=== PATIENT | male | born 1965 | race Caucasian/White ===

== ENCOUNTER 2017-07-08 14:15 | Inpatient (IN) | payer BC ==
[~2017-07-08] VITALS: Ht 182.9 cm; Wt 95.5 kg
[~2017-07-08 14:15] MED LIST: ALL300 PO; AZIT250T PO
--- NOTE | 2017-07-08 14:42 | EMERGENCY ROOM VISIT NOTE ---
History Report prepared by Mervin: Kodi Moon Under the Supervision of: Dr. Barb Short M.D. First contact with patient: 14:35 Chief Complaint: SYNCOPE Stated Complaint: SYNCOPE Nursing Triage Summary: pt reports he has been feeling not well today was at work went to boss to tell him he was not feeling well and had syncopal episode . pt was incontinent of stool. pt smells of gi bleed. has hx of hemorrhoids have been increasingly worse since wednesday. today after syncopal episode pt pants have bright red blood on them. pt now reports feeling better. had flu shot a couple days ago. pt has abrasion at left eyebrow, has headache from fall History of Present Illness The patient is a 51 year old male who presents to the Emergency Room with complaints of a syncopal episode that occurred earlier today. The patient says that he felt a bit "off" this morning, but it was not bad enough to stay home, so he went to work. He states that he continued to feel "off", and then walked about 50 feet across the office at work, and suddenly felt a wave of nausea, and then he passed out and collapsed on the floor. The patient notes that he was out a short period, and he woke up on the floor. He says that he was incontinent of stool when he was out. He adds that earlier today, he felt a touch of diarrhea, but had not had a bowel movement today prior to the syncopal episode. The patient denies any chest pain or shortness of breath. He says that he has a past medical history of double hernias and hemorrhoids. He notes that he had a colonoscopy earlier this year which revealed some potential signs of diverticulosis. He says that he rarely uses Aspirin or Ibuprofen. The patient rarely drinks alcohol. He notes no history of hepatitis. Source of History: patient Onset: Earlier today Position: other (global - syncope) Timing: other (episode) Associated Symptoms: + LOC, + nausea, No chest pain, No SOB Note: Associated symptoms: Feeling off today. Incontinent of stool during episode. Ackerman a touch of diarrhea earlier today. Review of Systems See HPI for pertinent positives & negatives. A total of 10 systems reviewed and were otherwise negative. Past Medical & Surgical Medical Problems: (1) Diverticulosis (2) Gout (3) Inguinal hernia Family History No pertinent family history Social History Smoking Status: Never Smoker Marital Status: Housing Status: lives with family Occupation Status: employed Current/Historical Medications Scheduled Allopurinol (Zyloprim), 300 MG PO DAILY Ferrous Sulfate (Ferrous Sulfate), 325 MG PO DAILY Multiple Vitamins W/ Minerals (Mens 50+ Multi Vitamin &), 1 TAB PO DAILY Psyllium (Metamucil Fiber), 1 PKT PO DAILY Allergies Coded Allergies: No Known Allergies (Unverified , 08/06/08) Physical Exam Vital Signs Date Time Temp Pulse Resp B/P (MAP) Pulse Ox O2 Delivery O2 Flow Rate FiO2 07/08/17 16:57 80 15 113/80 99 Room Air 07/08/17 15:33 86 128/76 100 Room Air 98 109/88 104 97/69 07/08/17 14:47 87 18 121/84 100 Room Air 07/08/17 14:38 100 Room Air 07/08/17 14:36 83 07/08/17 14:24 36.8 75 18 122/83 100 Room Air Physical Exam Vital signs reviewed. Orthostatics noted to be positive. General: Well-appearing 51 year old male, in no significant distress. HEENT: Pale conjunctiva. No scleral icterus, PERRLA, neck supple. Atraumatic. Cardiovascular: Regular rate and rhythm, no extra sounds. Pulmonary: Clear to auscultation bilaterally, normal work of breathing. Abdomen: Soft, nontender, nondistended, positive bowel sounds. Rectal: Melanotic stool, dark red blood, no external hemorrhoid or trauma visualized. Musculoskeletal: Atraumatic, no peripheral edema. Neurologic: Patient awake alert and oriented x 3 Skin: Warm, dry, no rash Medical Decision & Procedures ER Provider Diagnostic Interpretation: CT results as stated below per my review and radiologist interpretation: CT OF THE HEAD WITHOUT CONTRAST CLINICAL HISTORY: Head injury. Syncope. COMPARISON STUDY: No previous studies for comparison. CT DOSE: 1156.35 mGy.cm TECHNIQUE: Helical axial images of the head were obtained without IV contrast. Automated exposure control was utilized for the study. A dose lowering technique was utilized adhering to the principles of ALARA. FINDINGS: No acute intracranial hemorrhage, midline shift or mass effect is present. Brain volume is normal. Ventricular system is normal. Basilar cisterns are patent. There are no extra-axial collections. [place]-white differentiation is preserved. There are no findings to suggest acute dural sinus thrombosis or acute territorial infarct. There is no calvarial fracture. Visualized portions of the sinuses and mastoid air cells are clear. IMPRESSION: 1. No acute intracranial findings. 2. No calvarial fracture. Electronically signed by: Kodi Bal M.D. 07/08/2017 4:44 PM Dictated Date/Time: 07/08/2017 4:40 PM Laboratory Results Test 07/08/17 14:15 Immature Granulocyte % (Auto) 0.2 % White Blood Count 12.08 K/uL (4.8-10.8) Red Blood Count 3.11 M/uL (4.7-6.1) Hemoglobin 9.9 g/dL (14.0-18.0) Hematocrit 29.0 % (42-52) Mean Corpuscular Volume 93.2 fL (80-100) Mean Corpuscular Hemoglobin 31.8 pg (25-34) Mean Corpuscular Hemoglobin Concent 34.1 g/dl (32-36) Platelet Count 292 K/uL (130-400) Mean Platelet Volume 9.2 fL (7.4-10.4) Neutrophils (%) (Auto) 66.0 % Lymphocytes (%) (Auto) 27.2 % Monocytes (%) (Auto) 6.0 % Eosinophils (%) (Auto) 0.4 % Basophils (%) (Auto) 0.2 % Neutrophils # (Auto) 7.99 K/uL (1.4-6.5) Lymphocytes # (Auto) 3.28 K/uL (1.2-3.4) Monocytes # (Auto) 0.72 K/uL (0.11-0.59) Eosinophils # (Auto) 0.05 K/uL (0-0.5) Basophils # (Auto) 0.02 K/uL (0-0.2) Immature Granulocyte # (Auto) 0.02 K/uL (0.00-0.02) Total Bilirubin 0.2 mg/dl (0.2-1) Aspartate Amino Transf (AST/SGOT) 17 U/L (15-37) Alanine Aminotransferase (ALT/SGPT) 22 U/L (12-78) Alkaline Phosphatase 57 U/L (45-117) Total Protein 6.4 gm/dl (6.4-8.2) Albumin 3.1 gm/dl (3.4-5.0) Globulin 3.3 gm/dl (2.5-4.0) Albumin/Globulin Ratio 0.9 (0.9-2) Laboratory results per my review. Medications Administered Medications (Trade) Dose Ordered Sig/Nolan Route Start Time Stop Time Status Last Admin Dose Admin Sodium Chloride 500 ml @ 999 mls/hr Q31M STAT IV 07/08/17 15:14 07/08/17 15:44 DC 07/08/17 15:43 999 MLS/HR Sodium Chloride 1,000 ml @ 150 mls/hr Q6H40M STAT IV 07/08/17 15:14 07/08/17 18:20 DC 07/08/17 15:43 150 MLS/HR Pantoprazole Sodium 80 mg/ Dextrose 120 ml @ 400 mls/hr NOW IV 07/08/17 15:45 07/08/17 18:21 DC 07/08/17 17:22 400 MLS/HR ECG Indication: syncope Rate (beats per minute): 80 Rhythm: normal sinus Findings: no acute ischemic change, no ectopy ED Course 1514: Ordered NSS 1000 ml @ 150 mls/hr IV, NSS 500 ml @ 999 mls/hr IV. 1525: Past medical records reviewed. The patient was evaluated in room A3. A complete history and physical examination was performed. 1545: Ordered Pantoprazole Sodium 80 mg/Dextrose 120 ml @ 400 mls/hr IV. 1550: I talked to Dr. Brooke about getting a blood transfusion consent, type& cross 2 units to hold. 1635: Upon reevaluation, the patient is resting comfortably. I discussed laboratory and radiographic results with him. He verbalized agreement of the treatment plan. The patient will be evaluated for further management and care. 1645: I discussed the patient with Evelyn De Leon - she will evaluate the patient for further treatment. Medical Decision Differential diagnosis: Etiologies such as diverticulosis, AVM, coagulopathy, colitis, inflammatory bowel disease, malignancy, Evelyn-De Santiago tear, esophagitis, peptic ulcer disease , variceal bleed, gastritis, epistaxis, fissure, hemorrhoids, as well as others were entertained. This patient was evaluated and appeared to be in no significant distress. IV access was obtained and laboratory work was drawn. The patient was placed on the hat finisher. Patient is noted to have positive orthostatics. IV hydration was initiated. He was incontinent of a guaiac positive melanotic stool. H&H is low at 9.9 and 29. Patient's type and cross retaining is to hold. IV Protonix was initiated. EKG reveals a sinus rhythm without ectopy or ischemia. Patient will be evaluated by the hospitalist service for admission and further management. Medication Reconcilliation Current Medication List: was personally reviewed by me Blood Pressure Screening Patient's blood pressure: Normal blood pressure Consults Time Called: 1640 Consulting Physician: Evelyn De Leon Returned Call: [phone] I discussed the patient with Evelyn De Leon - she will evaluate the patient for further treatment. Impression Primary Impression: GI bleed Additional Impression: Syncope Scribe Attestation The scribe's documentation has been prepared under my direction and personally reviewed by me in its entirety. I confirm that the note above accurately reflects all work, treatment, procedures, and medical decision making performed by me. Departure Information Dispostion Being Evaluated By Hospitalist Referrals Larry Cobian M.D. (PCP) Patient Instructions My [facility] Problem Qualifiers
[2017-07-08] MEDS ORDERED: MULT-599 PO (15:14)
[2017-07-08] MEDS ORDERED: FERR325T5 PO (15:14)
[2017-07-08] MEDS ORDERED: SODIUM CHLORIDE 0.9% 1000ML 1,000 ML IV STA (15:14)
[2017-07-08] MEDS ORDERED: PSYL58.636 PO (15:14)
[2017-07-08] MEDS ORDERED: SODIUM CHLORIDE 0.9% 500ML 500 ML IV STA (15:14)
[2017-07-08] MEDS ORDERED: ALLO300T2 PO (15:14)
[2017-07-08 15:29] LABS: BASO % 0.2 %; BASO ABS # 0.02 K/uL (0-0.2); COMPLETE YES; EOS % 0.4 %; IG% 0.2 %; LYMPH % 27.2 %; LYMPH ABS # 3.28 K/uL (1.2-3.4); MEAN CELL VOLUME 93.2 fL (80-100); MEAN CORPUSCULAR HEMOGLOBIN 31.8 pg (25-34); MEAN CORPUSCULAR HGB CONC 34.1 g/dl (32-36); MEAN PLATELET VOLUME 9.2 fL (7.4-10.4); PLATELET COUNT 292 K/uL (130-400); RED BLOOD COUNT 3.11 M/uL (4.7-6.1); WHITE BLOOD COUNT 12.08 K/uL (4.8-10.8)
[2017-07-08 15:38] LABS: ALT/SGPT 22 U/L (12-78); AST/SGOT 17 U/L (15-37); BLOOD UREA NITROGEN 17 mg/dl (7-18); BUN/CREATININE RATIO 15.4 (10-20); CALCIUM 7.9 mg/dl (8.5-10.1); CARBON DIOXIDE 26 mmol/L (21-32); CHLORIDE 105 mmol/L (98-107); CREATININE 1.08 mg/dl (0.60-1.40); GLUCOSE 121 mg/dl (70-99); POTASSIUM 3.5 mmol/L (3.5-5.1); SODIUM 138 mmol/L (136-145)
[2017-07-08 15:43] LABS: ALB/GLOB RATIO 0.9 (0.9-2); ALKALINE PHOSPHATASE 57 U/L (45-117)
[2017-07-08] MEDS ORDERED: PANTOprazole INJ 80 MG in DEXTROSE 5% 100ML 100 ML IV SCH (15:45)
--- NOTE | 2017-07-08 16:02 | EMERGENCY ROOM VISIT NOTE ---
History First contact with patient: 14:36 Chief Complaint: SYNCOPE Stated Complaint: SYNCOPE Nursing Triage Summary: pt reports he has been feeling not well today was at work went to boss to tell him he was not feeling well and had syncopal episode . pt was incontinent of stool. pt smells of gi bleed. has hx of hemorrhoids have been increasingly worse since wednesday. today after syncopal episode pt pants have bright red blood on them. pt now reports feeling better. had flu shot a couple days ago. pt has abrasion at left eyebrow, has headache from fall History of Present Illness The patient is a 51 year old male who presents to the Emergency Room with complaints of syncopal episode, GI bleeding -Pt says that today at work he suddenly became nauseous and had the urge to defecate. -Pt says that he went into his [employer] office to and immediately passed out and soiled himself. -Pt said that he hit his head on the desk when falling -Pt says that the bowel movement was mixed with blood. -Pt says that he has noticed lily blood in the toilet throughout the week and just thought that it was from his internal hemorrhoids -Pt has a PMH of hemmorrhoids, diverticulosis and bilateral inguinal hernias -Pt denies abdominal pain prior to the episode. Pt reports feeling a little fatigued in the days leading up to the syncopal episode. -Pt had a colonoscopy in January which found moderate diverticulosis -Pt is not on a blood thinner -Pt donates PLT q 2 weeks. Review of Systems see below Constitutional: No fever, No chills, No sweats Respiratory: No cough, No sputum, No wheezing Cardiovascular: No chest pain, No edema, No palpitations Abdomen: + nausea, + diarrhea, + GI bleeding, No pain, No vomiting Genitourinary - Male: No hematuria, No dysuria Past Medical/Surgical History Medical Problems: (1) Diverticulosis (2) Gout (3) Inguinal hernia Social History Smoking Status: Never Smoker Marital Status: Housing Status: lives with family Occupation Status: employed Current/Historical Medications Scheduled Allopurinol (Zyloprim), 300 MG PO DAILY Ferrous Sulfate (Ferrous Sulfate), 325 MG PO DAILY Multiple Vitamins W/ Minerals (Mens 50+ Multi Vitamin &), 1 TAB PO DAILY Psyllium (Metamucil Fiber), 1 PKT PO DAILY Physical Exam Vital Signs Date Time Temp Pulse Resp B/P (MAP) Pulse Ox O2 Delivery O2 Flow Rate FiO2 07/08/17 16:57 80 15 113/80 99 Room Air 07/08/17 15:33 86 128/76 100 Room Air 98 109/88 104 97/69 07/08/17 14:47 87 18 121/84 100 Room Air 07/08/17 14:38 100 Room Air 07/08/17 14:36 83 07/08/17 14:24 36.8 75 18 122/83 100 Room Air Physical Exam see below General Appearance: WD/WN, no apparent distress Head: normocephalic, + evidence of trama (small abrasion on left eyebrow) Eyes: normal inspection, PERRL, EOMI, sclerae normal, funduscopic exam normal Respiratory/Chest: chest non-tender, lungs clear, normal breath sounds, no respiratory distress, no accessory muscle use Cardiovascular: regular rate, rhythm, no edema, no gallop, no JVD, no murmur Abdomen / GI: normal bowel sounds, non tender, soft, no organomegaly, no pulsatile mass, + abnormal rectal exam (melanous blood seen with KYLE. ), + fecal occult blood Neurologic/Psych: no motor/sensory deficits, alert, normal mood/affect, oriented x 3 Medical Decision & Procedures ER Provider Diagnostic Interpretation: CT OF THE HEAD WITHOUT CONTRAST CLINICAL HISTORY: Head injury. Syncope. COMPARISON STUDY: No previous studies for comparison. CT DOSE: 1156.35 mGy.cm TECHNIQUE: Helical axial images of the head were obtained without IV contrast. Automated exposure control was utilized for the study. A dose lowering technique was utilized adhering to the principles of ALARA. FINDINGS: No acute intracranial hemorrhage, midline shift or mass effect is present. Brain volume is normal. Ventricular system is normal. Basilar cisterns are patent. There are no extra-axial collections. [place]-white differentiation is preserved. There are no findings to suggest acute dural sinus thrombosis or acute territorial infarct. There is no calvarial fracture. Visualized portions of the sinuses and mastoid air cells are clear. IMPRESSION: 1. No acute intracranial findings. 2. No calvarial fracture. Electronically signed by: oKdi Bal M.D. 07/08/2017 4:44 PM Dictated Date/Time: 07/08/2017 4:40 PM The status of this report is Signed. Draft = Not yet reviewed or approved by Radiologist. Signed = Reviewed and approved by Radiologist. <AttendingPhy></AttendingPhy> <FamilyPhy>Kevin Garg M.D.(DAYANNA)</ FamilyPhy> <PrimaryPhy>Kevin Garg M.D.(DAYANNA)</PrimaryPhy> <UnitNumber> [id number]</UnitNumber> <VisitNumber>[id number]</VisitNumber> <PatientName> JACLYN CONNELLY</PatientName> <DateOfBirth>1965</DateOfBirth> <Location> [facility]</Location> <ServiceDate>07/08/17</ServiceDate> <MNE>ESINDI</MNE> < OrderingPhy>Edmar Brooke M.D.</OrderingPhy> <OrderingPhyMNE>f rep ord dr quispe</OrderingPhyMNE> <DictatingPhyMNE>f rep dict dr quispe</DictatingPhyMNE> < CCListMNE>f rep ct mne</CCListMNE> <AdmittingPhyMNE>f pt admit dr quispe</ AdmittingPhyMNE> <AttendingPhyMNE>f pt attend dr quispe</AttendingPhyMNE> Laboratory Results 07/08/17 14:15 Red Blood Count 3.11, Mean Corpuscular Volume 93.2, Mean Corpuscular Hemoglobin 31.8, Mean Corpuscular Hemoglobin Concent 34.1, Mean Platelet Volume 9.2, Neutrophils (%) (Auto) 66.0, Lymphocytes (%) (Auto) 27.2, Monocytes (%) (Auto) 6.0, Eosinophils (%) (Auto) 0.4, Basophils (%) (Auto) 0.2, Neutrophils # (Auto) 7.99, Lymphocytes # (Auto) 3.28, Monocytes # (Auto) 0.72, Eosinophils # (Auto) 0.05, Basophils # (Auto) 0.02 07/08/17 14:15 Test 07/08/17 14:15 White Blood Count 12.08 K/uL (4.8-10.8) Red Blood Count 3.11 M/uL (4.7-6.1) Hemoglobin 9.9 g/dL (14.0-18.0) Hematocrit 29.0 % (42-52) Mean Corpuscular Volume 93.2 fL (80-100) Mean Corpuscular Hemoglobin 31.8 pg (25-34) Mean Corpuscular Hemoglobin Concent 34.1 g/dl (32-36) Platelet Count 292 K/uL (130-400) Mean Platelet Volume 9.2 fL (7.4-10.4) Neutrophils (%) (Auto) 66.0 % Lymphocytes (%) (Auto) 27.2 % Monocytes (%) (Auto) 6.0 % Eosinophils (%) (Auto) 0.4 % Basophils (%) (Auto) 0.2 % Neutrophils # (Auto) 7.99 K/uL (1.4-6.5) Lymphocytes # (Auto) 3.28 K/uL (1.2-3.4) Monocytes # (Auto) 0.72 K/uL (0.11-0.59) Eosinophils # (Auto) 0.05 K/uL (0-0.5) Basophils # (Auto) 0.02 K/uL (0-0.2) RDW Standard Deviation 46.7 fL (36.4-46.3) RDW Coefficient of Variation 13.7 % (11.5-14.5) Immature Granulocyte % (Auto) 0.2 % Immature Granulocyte # (Auto) 0.02 K/uL (0.00-0.02) Anion Gap 7.0 mmol/L (3-11) Est Creatinine Clear Calc Drug Dose 100.0 ml/min Estimated GFR () 91.6 Estimated GFR (Non- 79.0 BUN/Creatinine Ratio 15.4 (10-20) Calcium Level 7.9 mg/dl (8.5-10.1) Total Bilirubin 0.2 mg/dl (0.2-1) Aspartate Amino Transf (AST/SGOT) 17 U/L (15-37) Alanine Aminotransferase (ALT/SGPT) 22 U/L (12-78) Alkaline Phosphatase 57 U/L (45-117) Total Protein 6.4 gm/dl (6.4-8.2) Albumin 3.1 gm/dl (3.4-5.0) Globulin 3.3 gm/dl (2.5-4.0) Albumin/Globulin Ratio 0.9 (0.9-2) Medications Administered Medications (Trade) Dose Ordered Sig/Nolan Route Start Time Stop Time Status Last Admin Dose Admin Sodium Chloride 500 ml @ 999 mls/hr Q31M STAT IV 07/08/17 15:14 07/08/17 15:44 DC 07/08/17 15:43 999 MLS/HR Sodium Chloride 1,000 ml @ 150 mls/hr Q6H40M STAT IV 07/08/17 15:14 07/08/17 18:20 DC 07/08/17 15:43 150 MLS/HR Pantoprazole Sodium 80 mg/ Dextrose 120 ml @ 400 mls/hr NOW IV 07/08/17 15:45 07/08/17 18:21 DC 07/08/17 17:22 400 MLS/HR ED Course 1500 History and Physical 1515 Order the following labs and test: EKG, troponin, orthostatic BP, CBC, CMP , CT of the head w/o contrast, Protonix, fluids, type and cross 2 units, IVF 1530 Reaccessed the patient 1545 Reviewed EKG, labs 1600 ordered IVF, type and cross, protonix 1615 patient consented to possible blood transfusion 1630 reaccessed patient, communicated need to admit. Discussed admission with hospitalist 1645 Pt taken to radiology for Head Ct 1700 Pt seen by hospitalist Medical Decision 51 yo male comes into the ED following syncopal episode and melena Pt had a significant rectal bleed when coming into the ED. The blood appears maroon in color. Pt is being evaluated for upper GI bleed. Considering the following differential: perforated ulcer, bleeding diverticulosis, bleeding internal hemorrhoids, IBD, colorectal cancer EKG normal sinus rhythm. Pt had a Hgb 9.9, HCT of 29. Pt had orthostatic hypotension. Pt was given 500 ml bolus of fluids and 1 L of IVF. Patient was also given protonix. Pt was type and crossed, with 2 units on hold. Pt signed blood transfusion consent. Other than orthostasis, pt was seen to have stable vitals throughout ED course. Head CT did not show intracranial findings or skull fracture. Consulted with the [facility] Hospitalist group regarding admission. Pt needs evaluation for upper GI bleed. Pt needs serial H/H and vitals. Impression Primary Impression: GI bleed Departure Information Referrals Larry Cobian M.D. (PCP) Patient Instructions My [facility]
--- NOTE | 2017-07-08 16:45 | DIAGNOSTIC IMAGING REPORT ---
CT OF THE HEAD WITHOUT CONTRAST CLINICAL HISTORY: Head injury. Syncope. COMPARISON STUDY: No previous studies for comparison. CT DOSE: 1156.35 mGy.cm TECHNIQUE: Helical axial images of the head were obtained without IV contrast. Automated exposure control was utilized for the study. A dose lowering technique was utilized adhering to the principles of ALARA. FINDINGS: No acute intracranial hemorrhage, midline shift or mass effect is present. Brain volume is normal. Ventricular system is normal. Basilar cisterns are patent. There are no extra-axial collections. [place]-white differentiation is preserved. There are no findings to suggest acute dural sinus thrombosis or acute territorial infarct. There is no calvarial fracture. Visualized portions of the sinuses and mastoid air cells are clear. IMPRESSION: 1. No acute intracranial findings. 2. No calvarial fracture. Electronically signed by: Kodi Bal M.D. 07/08/2017 4:44 PM Dictated Date/Time: 07/08/2017 4:40 PM
[2017-07-08] MEDS ORDERED: ACETAMINOPHEN 325 MG TAB PO PRN (17:15)
[2017-07-08] MEDS ORDERED: ONDANSETRON INJ 2 MG/ML 2 ML VIAL IV PRN (17:15)
[2017-07-08 17:30] VITALS: O2SAT 99; Ht 182.9 cm; Wt 95.5 kg
[2017-07-08 17:37] LABS: HEMATOCRIT 26.3 % (42-52)
--- NOTE | 2017-07-08 18:00 | History and Physical ---
History & Physical Date & Time of Service: Jul 08, 2017 ~ 16:30 Chief Complaint: Syncope Primary Care Physician: Kevin Garg M.D.(DAYANNA) History of Present Illness 51 year old male who presents to the ED after a syncopal event. Patient reports that when he woke up this morning he reports he felt "off and not himself." While at work, he reports he was walking down the [address] and suddenly felt lightheaded, dizzy, and nauseous. He walked into his boss's office and the next thing he new he was on the floor. He did hit his head on the desk on the way down. There was no reported seizure like symptoms or postictal state noted. No loss of bowel or bladder function. Patient denies any preceding chest pain or shortness of breath. He reports that since Wednesday he has had bloody diarrhea 1- 2 times a day. He reports that he thought it was hemorrhoids bleeding. He describes the blood as bright red. Last episode was this morning. He denies any dark tarry stools. He has had no abdominal pain. He denies any vomiting. No fevers or chills. He denies any urinary symptoms. In the ED, patient was found to have positive orthostatic BPs. Hgb is 9.9 (last hgb was 14.3 in 2007). He was given IVF and IV Protonix. Past Medical/Surgical History Medical Problems: (1) Diverticulosis Status: Chronic (2) Gout Status: Chronic (3) Inguinal hernia Status: Chronic Family History Diabetes mellitus FATHER FH: heart disease FATHER Social History Smoking Status: Never Smoker Alcohol Use: occasionally Marital Status: Occupational Status: employed Immunizations History of Influenza Vaccine: Yes Influenza Vaccine Date: Jul 03, 2017 History of Tetanus Vaccine?: Yes Tetanus Immunization Date: May 23, 2009 Multi-Drug Resistant Organisms History of MDRO: No Allergies Coded Allergies: No Known Allergies (Unverified , 08/06/08) Home Medications Scheduled Allopurinol (Zyloprim), 300 MG PO DAILY Ferrous Sulfate (Ferrous Sulfate), 325 MG PO DAILY Multiple Vitamins W/ Minerals (Mens 50+ Multi Vitamin &), 1 TAB PO DAILY Psyllium (Metamucil Fiber), 1 PKT PO DAILY Review of Systems ROS per HPI, all other systems reviewed and negative Physical Exam Vital Signs Date Time Temp Pulse Resp B/P (MAP) Pulse Ox O2 Delivery O2 Flow Rate FiO2 07/08/17 16:57 80 15 113/80 99 Room Air 07/08/17 15:33 86 128/76 100 Room Air 98 109/88 104 97/69 07/08/17 14:47 87 18 121/84 100 Room Air 07/08/17 14:38 100 Room Air 07/08/17 14:36 83 07/08/17 14:24 36.8 75 18 122/83 100 Room Air General Appearance: WD/WN, no apparent distress Head: normocephalic, + pertinent finding (small abrasion noted over left eyebrow with a small amount of edema) Eyes: normal inspection, EOMI, sclerae normal ENT: hearing grossly normal, + pertinent finding (mucous membranes moist) Neck: supple, no JVD, trachea midline Respiratory/Chest: lungs clear, normal breath sounds, no respiratory distress Cardiovascular: regular rate, rhythm, no edema, normal peripheral pulses Abdomen/GI: normal bowel sounds, non tender, soft, no organomegaly Extremities/Musculoskelatal: normal inspection, no calf tenderness, normal capillary refill Neurologic/Psych: no motor/sensory deficits, alert, oriented x 3 Skin: normal color, warm/dry Diagnostics Laboratory Results Results Past 24 Hours Test 07/08/17 14:15 Range/Units White Blood Count 12.08 4.8-10.8 K/uL Red Blood Count 3.11 4.7-6.1 M/uL Hemoglobin 9.9 14.0-18.0 g/dL Hematocrit 29.0 42-52 % Mean Corpuscular Volume 93.2 80-100 fL Mean Corpuscular Hemoglobin 31.8 25-34 pg Mean Corpuscular Hemoglobin Concent 34.1 32-36 g/dl Platelet Count 292 130-400 K/uL Mean Platelet Volume 9.2 7.4-10.4 fL Neutrophils (%) (Auto) 66.0 % Lymphocytes (%) (Auto) 27.2 % Monocytes (%) (Auto) 6.0 % Eosinophils (%) (Auto) 0.4 % Basophils (%) (Auto) 0.2 % Neutrophils # (Auto) 7.99 1.4-6.5 K/uL Lymphocytes # (Auto) 3.28 1.2-3.4 K/uL Monocytes # (Auto) 0.72 0.11-0.59 K/uL Eosinophils # (Auto) 0.05 0-0.5 K/uL Basophils # (Auto) 0.02 0-0.2 K/uL RDW Standard Deviation 46.7 36.4-46.3 fL RDW Coefficient of Variation 13.7 11.5-14.5 % Immature Granulocyte % (Auto) 0.2 % Immature Granulocyte # (Auto) 0.02 0.00-0.02 K/uL Sodium Level 138 136-145 mmol/L Potassium Level 3.5 3.5-5.1 mmol/L Chloride Level 105 98-107 mmol/L Carbon Dioxide Level 26 21-32 mmol/L Anion Gap 7.0 3-11 mmol/L Blood Urea Nitrogen 17 7-18 mg/dl Creatinine 1.08 0.60-1.40 mg/dl Est Creatinine Clear Calc Drug Dose 100.0 ml/min Estimated GFR () 91.6 Estimated GFR (Non- 79.0 BUN/Creatinine Ratio 15.4 10-20 Random Glucose 121 70-99 mg/dl Calcium Level 7.9 8.5-10.1 mg/dl Total Bilirubin 0.2 0.2-1 mg/dl Aspartate Amino Transf (AST/SGOT) 17 15-37 U/L Alanine Aminotransferase (ALT/SGPT) 22 12-78 U/L Alkaline Phosphatase 57 45-117 U/L Troponin I < 0.015 0-0.045 ng/ml Total Protein 6.4 6.4-8.2 gm/dl Albumin 3.1 3.4-5.0 gm/dl Globulin 3.3 2.5-4.0 gm/dl Albumin/Globulin Ratio 0.9 0.9-[address] IMPRESSION: 1. No acute intracranial findings. 2. No calvarial fracture. Impression Assessment and Plan LOWER GI BLEED - admit to tele - patient presenting with syncopal event and also with bloody diarrhea x 4 days ; in the ED, orthostatic BPs are positive and hgb found to be 9.9 - colonoscopy 01/2017 - diverticulosis sigmoid colon; polyp removed from transverse colon (negative path) - suspect likely diverticular bleed; noted no abdominal pain - will continue to check serial H/Hs, transfuse PRN - clear liquids, NPO after midnight - will check stool studies - case discussed with Dr. Jones SYNCOPE - likely due to orthostasis due to hypovolemia from blood loss from GI bleed - IVF, continue to monitor orthostatic BPs - initial troponin negative, will continue to cycle for completeness - noted head CT negative GOUT - continue allopurinol DVT PROPHYLAXIS - SCDs due to GI bleed DISPO - In my clinical judgment this beneficiary meets acute admission criteria, established by [facility], that includes being hospitalized through two midnights. Attending Physician Dr. Crystal Addendum: I have seen and examined the patient with MARITIME OFFICER Love and agree with the above assessment and plan. Patient without cardiac or respiratory health history with syncopal episode in context of several days of blood per rectum and found to be anemic. Patient denies chest pain or shortness of breath with normal EKG and normal CT head scan. Will continue to monitor CBC and provide supportive therapy, patient consented for blood transfusion if needed. Awaiting GI service for colonoscopy for GI bleed. Level of Care Telemetry Resuscitation Status FULL RESUSCITATION VTE Prophylaxis VTE Risk Assessment Done? Y/N: Yes Risk Level: Moderate Given or contraindicated: SCD's
[2017-07-08 18:12] VITALS: BP 119/83; PULSE 81; TEMP 36.7; O2SAT 98
[2017-07-08] MEDS: SODIUM CHLORIDE 0.9% 1000ML 1,000 ML IV SCH (18:24)
[2017-07-08 21:02] LABS: HEMATOCRIT 27.6 % (42-52)
[2017-07-08 21:52] VITALS: BP_SYST 111; BP_SYST 124; BP_SYST 132; BP_DIAS 77; BP_DIAS 79; BP_DIAS 84; PULSE 109; PULSE 89; PULSE 97; O2SAT 99
[2017-07-08 23:56] VITALS: BP_SYST 108; BP_SYST 124; BP_SYST 127; BP_DIAS 76; BP_DIAS 78; BP_DIAS 83; PULSE 102; PULSE 115; PULSE 79; TEMP 36.5; O2SAT 97
[2017-07-09] VITALS (9 sets, daily range): BP systolic 102–134; BP diastolic 68–81; PULSE 16–100; TEMP 36.3–37; O2SAT 97–100
[2017-07-09] MEDS: SODIUM CHLORIDE 0.9% 1000ML 1,000 ML IV SCH (03:01)
[2017-07-09 05:42] LABS: HEMATOCRIT 25.1 % (42-52); MEAN CORPUSCULAR HEMOGLOBIN 31.1 pg (25-34); MEAN CORPUSCULAR HGB CONC 33.5 g/dl (32-36); MEAN PLATELET VOLUME 8.8 fL (7.4-10.4); PLATELET COUNT 238 K/uL (130-400); WHITE BLOOD COUNT 10.34 K/uL (4.8-10.8)
[2017-07-09 06:13] LABS: BLOOD UREA NITROGEN 15 mg/dl (7-18); BUN/CREATININE RATIO 16.5 (10-20); CALCIUM 8.1 mg/dl (8.5-10.1); CARBON DIOXIDE 27 mmol/L (21-32); CHLORIDE 110 mmol/L (98-107); CREATININE 0.93 mg/dl (0.60-1.40); GLUCOSE 93 mg/dl (70-99); POTASSIUM 3.8 mmol/L (3.5-5.1); SODIUM 142 mmol/L (136-145)
--- NOTE | 2017-07-09 08:27 | Gastrointestinal Consultation ---
Gastrointestinal Consultation Date of Consultation: Jul 09, 2017 Attending Physician: Bonilla Consulting Physician: Robert Reason for Consultation: GIB History of Present Illness Patient is a 51 year old male with history of Gout, diverticulosis and hemorrhoids who presented to the ED following a syncopal episode at work. Pt was seen and evaluated, chart reviewed. Pt notes that he was in his typical state of health up until Wednesday. He notes that he normally moves his bowels once daily, formed stools, without rectal pain or rectal bleeding. Developed painless rectal bleeding on Wednesday. 1-2 episodes of dark red stools. no clots. he became symptomatic with light headness, dizziness and syncopal episode yesterday. H&H 8.4/. VSS. BUN CERTIFIED WELLNESS PROGRAM COORDINATOR ok Past Medical/Surgical History Medical Problems: (1) GI bleed Status: Acute Past Medical History: gout, diverticulosis Past Surgical History: colonoscopy Family History Diabetes mellitus FATHER FH: heart disease FATHER Social History Smoking Status: Never Smoker Marital Status: Housing Status: lives with family Occupation Status: employed Allergies Coded Allergies: No Known Allergies (Unverified , 08/06/08) Current Medications Home Meds and Scripts Medications Dose Route/Sig Max Daily Dose Days Date Category Metamucil Fiber (Psyllium) 51.7 % [place] 1 Pkt PO DAILY 07/08/17 Reported Ferrous Sulfate 325 Mg Tab 325 Mg PO DAILY 07/08/17 Reported Mens 50+ Multi Vitamin & (Multiple Vitamins W/ Minerals) 1 Tab Tab 1 Tab PO DAILY 07/08/17 Reported Zyloprim (Allopurinol) 300 Mg Tab 300 Mg PO DAILY 07/08/17 Reported Review of Systems Constitutional: No fever, No chills Respiratory: No cough Cardiac: No chest pain Abdomen: + diarrhea, + GI bleeding, No pain, No nausea, No vomiting Physical Exam Date Time Temp Pulse Resp B/P (MAP) Pulse Ox O2 Delivery O2 Flow Rate FiO2 07/09/17 08:02 36.9 84 19 114/76 (89) 98 Nasal Cannula 82 110/76 (87) 16 117/81 (93) 07/09/17 04:00 Room Air 07/09/17 03:50 36.3 86 18 102/69 (80) 98 Room Air 07/08/17 23:59 Room Air 07/08/17 23:56 36.5 79 18 127/83 (98) 97 Room Air 102 124/78 (93) 115 108/76 (87) 07/08/17 21:52 89 20 124/84 (97) 99 Room Air 97 132/77 (95) 109 111/79 (90) 07/08/17 20:00 Room Air 07/08/17 18:12 36.7 81 20 119/83 (95) 98 Room Air 07/08/17 17:40 90 10 114/77 97 07/08/17 17:30 99 Room Air 07/08/17 17:21 88 07/08/17 16:57 80 15 113/80 99 Room Air 07/08/17 15:33 86 128/76 100 Room Air 98 109/88 104 97/69 07/08/17 14:47 87 18 121/84 100 Room Air 07/08/17 14:38 100 Room Air 07/08/17 14:36 83 07/08/17 14:24 36.8 75 18 122/83 100 Room Air General Appearance: no apparent distress Eyes: PERRL ENT: hearing grossly normal Neck: supple Respiratory/Chest: lungs clear Cardiovascular: regular rate, rhythm Abdomen: non tender, soft, no organomegaly, no pulsatile mass Neurologic/Psych: alert, normal mood/affect, oriented x 3 Skin: normal color Laboratory Results Last 24 Hours Test 07/08/17 14:15 07/08/17 17:16 07/08/17 20:50 07/09/17 05:14 White Blood Count 12.08 K/uL 10.34 K/uL Red Blood Count 3.11 M/uL 2.70 M/uL Hemoglobin 9.9 g/dL 8.9 g/dL 8.9 g/dL 8.4 g/dL Hematocrit 29.0 % 26.3 % 27.6 % 25.1 % Mean Corpuscular Volume 93.2 fL 93.0 fL Mean Corpuscular Hemoglobin 31.8 pg 31.1 pg Mean Corpuscular Hemoglobin Concent 34.1 g/dl 33.5 g/dl Platelet Count 292 K/uL 238 K/uL Mean Platelet Volume 9.2 fL 8.8 fL Neutrophils (%) (Auto) 66.0 % Lymphocytes (%) (Auto) 27.2 % Monocytes (%) (Auto) 6.0 % Eosinophils (%) (Auto) 0.4 % Basophils (%) (Auto) 0.2 % Neutrophils # (Auto) 7.99 K/uL Lymphocytes # (Auto) 3.28 K/uL Monocytes # (Auto) 0.72 K/uL Eosinophils # (Auto) 0.05 K/uL Basophils # (Auto) 0.02 K/uL RDW Standard Deviation 46.7 fL 46.7 fL RDW Coefficient of Variation 13.7 % 13.8 % Immature Granulocyte % (Auto) 0.2 % Immature Granulocyte # (Auto) 0.02 K/uL Sodium Level 138 mmol/L 142 mmol/L Potassium Level 3.5 mmol/L 3.8 mmol/L Chloride Level 105 mmol/L 110 mmol/L Carbon Dioxide Level 26 mmol/L 27 mmol/L Anion Gap 7.0 mmol/L 5.0 mmol/L Blood Urea Nitrogen 17 mg/dl 15 mg/dl Creatinine 1.08 mg/dl 0.93 mg/dl Est Creatinine Clear Calc Drug Dose 100.0 ml/min 113.9 ml/min Estimated GFR () 91.6 109.8 Estimated GFR (Non- 79.0 94.7 BUN/Creatinine Ratio 15.4 16.5 Random Glucose 121 mg/dl 93 mg/dl Calcium Level 7.9 mg/dl 8.1 mg/dl Total Bilirubin 0.2 mg/dl Aspartate Amino Transf (AST/SGOT) 17 U/L Alanine Aminotransferase (ALT/SGPT) 22 U/L Alkaline Phosphatase 57 U/L Troponin I < 0.015 ng/ml < 0.015 ng/ml < 0.015 ng/ml Total Protein 6.4 gm/dl Albumin 3.1 gm/dl Globulin 3.3 gm/dl Albumin/Globulin Ratio 0.9 Impression Patient is a 51 year old male with 4 days of painless rectal bleeding resulting in a syncopal episode yesterday - he has been having 1-2 bloody BMs since Wednesday , colonoscopy in January with diverticulosis and one benign polyp. He is not having any abdominal pain. no NSAIDs. no anticoagulation. No UGI symptoms. UGIB vs LGIB , will proceed with EGD for evaluation to rule out UGI source. Likely diverticular bleed, painless bleeding Plan NPO EGD stool culture stool cdiff trend H&H monitor stools transfuse as needed I have seen , examined and agree with the plan as outlined by MARCK BarkerNP as above. -exam reveals soft abd -No bleeding since 1300 yesterday -Will do EGD today to r/u upper GI pathology -Further recs to follow Davis Jones M.D.
[2017-07-09] MEDS: ALLOPURINOL 300 MG TAB PO SCH (08:48)
[2017-07-09] MEDS: CEROVITE ADV FORMULA TAB PO SCH (08:48)
[2017-07-09] MEDS: FERROUS SULFATE 325 MG TAB PO SCH (08:48)
[2017-07-09] MEDS ORDERED: MIDAZOLAM HCL 1 MG/ML 2ML VIAL ONE (09:15)
--- NOTE | 2017-07-09 10:02 | Progress Note ---
Medicine Progress Note Date & Time of Visit: Jul 09, 2017 at 09:58. (Nanci Gee, P.A.-C.) Subjective Patient seen and examined. Resting comfortably and feeling much better. Denies any lightheadedness, dizziness, weakness or syncopal events overnight. Was able to ambulate to and from restroom without pre-syncopal symptoms. No bowel movement since admission, no BRBPR. Denies visual changes, headache, palpitations, SOB, abd pain, n/v, melena, hematochezia. (Nanci Gee, P.A.-C.) Objective Last 8 Hrs Date Time Temp Pulse Resp B/P (MAP) Pulse Ox O2 Delivery O2 Flow Rate FiO2 07/09/17 09:41 36.7 90 18 103/79 (87) 99 Room Air 07/09/17 09:03 36.9 84 19 117/81 98 Nasal Cannula 82 16 07/09/17 08:02 36.9 84 19 114/76 (89) 98 Nasal Cannula 82 110/76 (87) 16 117/81 (93) 07/09/17 08:00 Room Air 07/09/17 04:00 Room Air 07/09/17 03:50 36.3 86 18 102/69 (80) 98 Room Air Physical Exam: General Appearance: WD/WN, no apparent distress Head: normocephalic, atraumatic Eyes: normal inspection of sclera and conjunctiva, PERRL, EOMI ENT: hearing grossly normal, pharynx normal, dry mucous membranes Neck: supple, no JVD, no adenopathy Respiratory/Chest: lungs clear to auscultation. No wheezes, rales or rhonci. No respiratory distress or accessory muscle use Cardiovascular: regular rate, rhythm, no murmur, normal peripheral pulses Abdomen/GI: normal bowel sounds, soft, non-tender to palpation Extremities/Musculoskelatal: normal inspection, no calf tenderness, normal capillary refill, no pedal edema Neurologic/Psych: alert, normal mood/affect, oriented x 3 Skin: normal color, warm/dry Laboratory Results: Last 24 Hours Test 07/08/17 14:15 07/08/17 17:16 07/08/17 20:50 07/09/17 05:14 White Blood Count 12.08 K/uL 10.34 K/uL Red Blood Count 3.11 M/uL 2.70 M/uL Hemoglobin 9.9 g/dL 8.9 g/dL 8.9 g/dL 8.4 g/dL Hematocrit 29.0 % 26.3 % 27.6 % 25.1 % Mean Corpuscular Volume 93.2 fL 93.0 fL Mean Corpuscular Hemoglobin 31.8 pg 31.1 pg Mean Corpuscular Hemoglobin Concent 34.1 g/dl 33.5 g/dl Platelet Count 292 K/uL 238 K/uL Mean Platelet Volume 9.2 fL 8.8 fL Neutrophils (%) (Auto) 66.0 % Lymphocytes (%) (Auto) 27.2 % Monocytes (%) (Auto) 6.0 % Eosinophils (%) (Auto) 0.4 % Basophils (%) (Auto) 0.2 % Neutrophils # (Auto) 7.99 K/uL Lymphocytes # (Auto) 3.28 K/uL Monocytes # (Auto) 0.72 K/uL Eosinophils # (Auto) 0.05 K/uL Basophils # (Auto) 0.02 K/uL RDW Standard Deviation 46.7 fL 46.7 fL RDW Coefficient of Variation 13.7 % 13.8 % Immature Granulocyte % (Auto) 0.2 % Immature Granulocyte # (Auto) 0.02 K/uL Sodium Level 138 mmol/L 142 mmol/L Potassium Level 3.5 mmol/L 3.8 mmol/L Chloride Level 105 mmol/L 110 mmol/L Carbon Dioxide Level 26 mmol/L 27 mmol/L Anion Gap 7.0 mmol/L 5.0 mmol/L Blood Urea Nitrogen 17 mg/dl 15 mg/dl Creatinine 1.08 mg/dl 0.93 mg/dl Est Creatinine Clear Calc Drug Dose 100.0 ml/min 113.9 ml/min Estimated GFR () 91.6 109.8 Estimated GFR (Non- 79.0 94.7 BUN/Creatinine Ratio 15.4 16.5 Random Glucose 121 mg/dl 93 mg/dl Calcium Level 7.9 mg/dl 8.1 mg/dl Total Bilirubin 0.2 mg/dl Aspartate Amino Transf (AST/SGOT) 17 U/L Alanine Aminotransferase (ALT/SGPT) 22 U/L Alkaline Phosphatase 57 U/L Troponin I < 0.015 ng/ml < 0.015 ng/ml < 0.015 ng/ml Total Protein 6.4 gm/dl Albumin 3.1 gm/dl Globulin 3.3 gm/dl Albumin/Globulin Ratio 0.9 (Nanci Gee, P.A.-C.) Assessment & Plan This is a 51yo M with PMH of diverticulosis, gout who presents after a syncopal event yesterday and 4 days of painless rectal bleeding. Lower GI bleed: -Presenting with syncopal event and also with bloody diarrhea x 4 days -In the ED, orthostatic BPs are positive and hgb found to be 9.9 -Colonoscopy 01/2017 - diverticulosis sigmoid colon; polyp removed from transverse colon (negative path) -Serial H&H show downtrend from 9.9 --> 8.4 but VS stable, asymptomatic -NPO, EGD to rule out an upper bleed but most likely diverticular -No bowel movements during admission -Follow-up OP for colonoscopy -Stool studies pending -GI following Syncope: - Likely due to orthostasis due to hypovolemia from blood loss 2/2 GI bleed - IVF, continue to monitor orthostatic BPs -Orthostatics negative this AM - Troponin negative x 3 - noted head CT negative Gout: - Continue allopurinol DVT ppx: - SCDs due to GI bleed DISPO - If continues to feel well and hgb remains stable, patient may be ready for discharge later today vs. observe until tomorrow Discharge planning: home Current Inpatient Medications: Current Inpatient Medications Medications (Trade) Dose Ordered Sig/Nolan Route Start Time Stop Time Status Last Admin Dose Admin Sodium Chloride 1,000 ml @ 125 mls/hr Q8H IV 07/08/17 18:30 08/07/17 18:29 07/09/17 03:01 125 MLS/HR Acetaminophen (Tylenol Tab) 650 mg Q4H PRN PO 07/08/17 17:15 08/07/17 17:14 Ondansetron HCl (Zofran Inj) 4 mg Q6H PRN IV 07/08/17 17:15 08/07/17 17:14 Allopurinol (Zyloprim Tab) 300 mg DAILY PO 07/09/17 09:00 08/08/17 08:59 07/09/17 08:48 300 MG Ferrous Sulfate (Feosol Tab) 325 mg DAILY PO 07/09/17 09:00 08/08/17 08:59 07/09/17 08:48 325 MG Multivitamins/ Minerals (Multivitamin W/ Minerals Tab) 1 tab DAILY PO 07/09/17 09:00 08/08/17 08:59 07/09/17 08:48 1 TAB (Nanci Gee, P.AIgnacio-Carolynn) Addendum Attending Physician Dr. Crystal: I have seen and examined the patient with CAROLINA Gee. I would like to add to the assessment and plan by commenting that patient s/p EGD without obvious signs of source of bleeding. Evidence of hernia. Evidence of jaimie. Patient now on fluconazole for jaimie esophagitis however patient without pain on swallowing. As per GI evaluation, GI service believes source of bleeding is diverticular. Patient has not had bowel movement as of yet by 6 PM on 07/09/17. Will continue to monitor patient if further rectal bleed and trend CBC. ([place] Crystal M.D.)
[2017-07-09] MEDS ORDERED: LIDOCAINE HCL 2% 2 ML VIAL (20MG/ML) ONE (10:10)
[2017-07-09] MEDS ORDERED: PROPOFOL IV EMULSION 10 MG/ML 20 ML VIAL IV ONE (10:10)
[2017-07-09] MEDS ORDERED: PHENYLEPHRINE 100MCG/ML 5ML SYR ONE (10:23)
--- NOTE | 2017-07-09 10:41 | GI REPORT ---
Procedure Date: 07/09/2017 10:07 AM Procedure: Upper GI endoscopy Indications: Hematochezia Medicines: General Anesthesia Complications: No immediate complications. Estimated blood loss: None. Estimated Blood Loss: Estimated blood loss: none. Procedure: Pre-Anesthesia Assessment: - Pre-Anesthesia Assessment: - Prior to the procedure, a History and Physical was performed, and patient medications, allergies and sensitivities were reviewed. The patient's tolerance of previous anesthesia was reviewed. Please see Rock Content for complete details. - The risks and benefits of the procedure and the sedation options and risks were discussed with the patient. All questions were answered and informed consent was obtained. - Patient identification and proposed procedure were verified prior to the procedure by the physician and the nurse. The procedure was verified in the pre-procedure area in the procedure room. After obtaining informed consent, the endoscope was passed carefully and meticuously under direct vision and only advanced when the lumen was clearly identified, C02 insuflation was utilized throughout the entirity of the procedure. Throughout the procedure, the patient's blood pressure, pulse, and oxygen saturations were monitored continuously. After obtaining informed consent, the endoscope was passed under direct vision. Throughout the procedure, the patient's blood pressure, pulse, and oxygen saturations were monitored continuously. The Scope was introduced through the mouth, and advanced to the second part of duodenum. The upper GI endoscopy was accomplished without difficulty. The patient tolerated the procedure well. Findings: A large hiatus hernia was present. Patchy candidiasis was found in the upper third of the esophagus. Cells for cytology were obtained by brushing. The entire examined stomach was normal. The duodenal bulb, 2nd part of the duodenum, 3rd part of the duodenum and 4th part of the duodenum were normal. Impression: - Large hiatus hernia. - Monilial esophagitis. Cells for cytology obtained. - Normal stomach. - Normal duodenal bulb, 2nd part of the duodenum, 3rd part of the duodenum and 4th part of the duodenum. Recommendation: - Discharge patient to home (with escort). - Return patient to [facility] for [facility]. - Likely Diveticular bleed given presentation and recent colonsocopy in January 2017 with sigmoid diverticuli - Ok for liquids today, can advance if no bleeding by dinner. Supporitve care - Diflucan for jaimie - If has bleeding consider inpatient colonoscopy Davis Jones MD 07/09/2017 10:40:19 AM This report has been signed electronically. Note Initiated On: 07/09/2017 10:07 AM I attest to the content of the Intraoperative Record and orders documented therein, exceptions below
--- NOTE | 2017-07-09 10:56 | Anesthesiology Progress Note ---
Anesthesia Post Op Note Date & Time Jul 09, 2017 at 10:56 Vital Signs Pain Intensity: 0.0 Vital Signs Past 12 Hours Date Time Temp Pulse Resp B/P (MAP) Pulse Ox O2 Delivery O2 Flow Rate FiO2 07/09/17 10:46 74 16 111/75 (87) 96 Room Air 07/09/17 10:36 74 16 108/79 (89) 96 Room Air 07/09/17 10:27 74 16 92/58 (69) 95 Room Air 07/09/17 09:41 36.7 90 18 103/79 (87) 99 Room Air 07/09/17 09:03 36.9 84 19 117/81 98 Nasal Cannula 82 16 07/09/17 08:02 36.9 84 19 114/76 (89) 98 Nasal Cannula 82 110/76 (87) 16 117/81 (93) 07/09/17 08:00 Room Air 07/09/17 04:00 Room Air 07/09/17 03:50 36.3 86 18 102/69 (80) 98 Room Air 07/08/17 23:59 Room Air 07/08/17 23:56 36.5 79 18 127/83 (98) 97 Room Air 102 124/78 (93) 115 108/76 (87) Notes Mental Status: alert / awake / arousable, participated in evaluation Pt Amnestic to Procedure: Yes Nausea / Vomiting: adequately controlled Pain: adequately controlled Airway Patency, RR, SpO2: stable & adequate BP & HR: stable & adequate Hydration State: stable & adequate Anesthetic Complications: no major complications apparent
--- NOTE | 2017-07-09 12:45 | Clinical Documentation Query ---
QUERY 1 OF [address] CHANEY, In your clinical opinion is this patient being managed for: (x) Candidal esophagitis ( ) Not Agree ( ) Other explanation of clinical findings (Please Explain) ( ) Unable to determine (Please Define) ( ) Need to Discuss The medical record reflects the following clinical findings, treatment, and risk factors. Clinical Indicators:51 yo male presenting after a syncopal episode with recent onset of bloody stools. EGD showed monilial esophagitis. Treatment: po diflucan Risk Factors:hiatal hernia QUERY 2 OF 2 In your clinical opinion is this patient being managed for: ( x ) Acute blood loss anemia due to suspected diverticular bleed ( ) Not Agree ( ) Other explanation of clinical findings (Please Explain) ( ) Unable to determine (Please Define) ( ) Need to Discuss The medical record reflects the following clinical findings, treatment, and risk factors. Clinical Indicators: 51 yo male presenting with several days of bloody diarrhea. Hgb 9.9, Hct 29. Treatment: GI consult, EGD, IV fluids, serial H/H's, IV protonix Risk Factors: bloody diarrhea Please clarify and document your clinical opinion in the progress notes and discharge summary. Terms such as "probable", "suspected", "likely", "questionable", "possible", or "still to be ruled out" are acceptable. IF IN AGREEMENT, YOU MUST DOCUMENT ABOVE DIAGNOSTIC STATEMENT IN DAILY PROGRESS NOTES AND DISCHARGE SUMMARY. This document is not part of the patient's record. Thank You, Viridiana Batres, RN [phone]
[2017-07-09] MEDS: FLUCONAZOLE 100 MG TAB PO SCH (13:15)
[2017-07-09] MEDS ORDERED: NURSING VERBAL MED ORDER ONE (16:00)
[2017-07-10] VITALS (7 sets, daily range): BP systolic 100–119; BP diastolic 67–83; PULSE 62–98; TEMP 36.6–36.8; O2SAT 98–100
[2017-07-10 06:28] LABS: BASO % 0.2 %; BASO ABS # 0.01 K/uL (0-0.2); EOS % 1.2 %; HEMATOCRIT 24.7 % (42-52); IG% 0.2 %; LYMPH ABS # 2.09 K/uL (1.2-3.4); MEAN CELL VOLUME 93.6 fL (80-100); MEAN CORPUSCULAR HEMOGLOBIN 31.1 pg (25-34); MEAN CORPUSCULAR HGB CONC 33.2 g/dl (32-36); MEAN PLATELET VOLUME 8.8 fL (7.4-10.4); MONO % 8.9 %; NEUT % 57.5 %; PLATELET COUNT 256 K/uL (130-400); RED BLOOD COUNT 2.64 M/uL (4.7-6.1); WHITE BLOOD COUNT 6.53 K/uL (4.8-10.8)
[2017-07-10 07:06] LABS: BUN/CREATININE RATIO 9.6 (10-20); CALCIUM 8.3 mg/dl (8.5-10.1); CREATININE 0.98 mg/dl (0.60-1.40); POTASSIUM 3.8 mmol/L (3.5-5.1)
[2017-07-10 07:10] LABS: COMPLETE YES; HYPERSEGMENTED POLYS 1+
[2017-07-10] MEDS: FLUCONAZOLE 100 MG TAB PO SCH (08:01)
[2017-07-10] MEDS: ALLOPURINOL 300 MG TAB PO SCH (08:01)
[2017-07-10] MEDS: CEROVITE ADV FORMULA TAB PO SCH (08:02)
[2017-07-10] MEDS: FERROUS SULFATE 325 MG TAB PO SCH (08:02)
[2017-07-10 12:17] LABS: HEMATOCRIT 27.3 % (42-52); MEAN CELL VOLUME 93.2 fL (80-100); MEAN CORPUSCULAR HEMOGLOBIN 30.7 pg (25-34); MEAN PLATELET VOLUME 8.8 fL (7.4-10.4); PLATELET COUNT 309 K/uL (130-400); RED BLOOD COUNT 2.93 M/uL (4.7-6.1); WHITE BLOOD COUNT 8.26 K/uL (4.8-10.8)
--- NOTE | 2017-07-10 13:32 | Progress Note ---
Internal Med Progress Note Date of Service: Jul 10, 2017. Provider Documentation: SUBJECTIVE: Overnight patient has blood in stool x 2 episodes. Patient denies abdominal pain or lightheadedness or chest pain of shortness of breath. OBJECTIVE: General Appearance: WD/WN, no apparent distress Head: normocephalic, atraumatic Eyes: normal inspection of sclera and conjunctiva, EOMI ENT: hearing grossly normal, dry mucous membranes Neck: supple, no JVD, no adenopathy Respiratory/Chest: lungs clear to auscultation. No wheezes, rales or rhonchi. No respiratory distress or accessory muscle use Cardiovascular: regular rate, rhythm, no murmur, normal peripheral pulses Abdomen/GI: normal bowel sounds, soft, non-tender to palpation Extremities/Musculoskelatal: normal inspection, no calf tenderness, normal capillary refill, no pedal edema Neurologic/Psych: alert, normal mood/affect, oriented x 3 Skin: normal color, warm/dry ASSESSMENT & PLAN: This is a 51yo M with PMH of diverticulosis, gout who is admitted after syncopal episode at work in the context of painless GI bleed per rectum -Patient s/p EGD on 07/09/17 without evidence of ulcers -as per GI note on 07/09/17, suspect diverticular bleed -Hgb downtrending since admission: 9.9 (on admission) to 8.9 to 8.4 to 8.2 (on 07/10/17 AM lab) with repeat lab Hgb 9 around the noon time on 07/10/17. -I suspect that the Hgb around the noon time 07/10/17 is hemoconcentration as patient had 2 episodes of blood in stool between 07/09/17 to 07/10/17 -awaiting GI recommendations on timing of colonoscopy as patient continues to have blood in stool Syncope: - Likely due to orthostasis due to hypovolemia or anemia form blood loss secondary to GI bleed -CT head on admission negative -troponins negative x 3 -no arrhythmia seen on telemetry Gout: - Continue allopurinol DVT ppx: SCDs due to GI bleed Vital Signs: Date Time Temp Pulse Resp B/P (MAP) Pulse Ox O2 Delivery O2 Flow Rate FiO2 07/10/17 12:00 Room Air 07/10/17 11:31 36.8 79 18 100/67 (78) 99 Room Air 07/10/17 08:00 Room Air 07/10/17 07:48 36.7 77 18 119/73 (88) 100 Room Air 73 117/83 (94) 98 116/83 (94) 07/10/17 04:12 36.8 62 17 113/72 (86) 98 Room Air 07/10/17 04:00 98 Room Air 07/10/17 00:00 Room Air 07/09/17 23:33 100 106/71 (83) 07/09/17 23:30 86 112/79 (90) 07/09/17 23:28 36.8 81 15 118/68 (85) 97 Room Air 07/09/17 20:00 Room Air 07/09/17 19:30 37.0 80 22 114/75 (88) 100 Room Air 07/09/17 16:00 Room Air 07/09/17 15:37 36.6 89 22 116/73 (87) 100 Room Air 92 134/78 (96) 92 103/73 (83) Lab Results: Results Past 24 Hours Test 07/09/17 20:30 07/10/17 05:35 07/10/17 11:46 Range/Units Stool Occult Blood POSITIVE NEGATIVE White Blood Count 6.53 8.26 4.8-10.8 K/uL Red Blood Count 2.64 2.93 4.7-6.1 M/uL Hemoglobin 8.2 9.0 14.0-18.0 g/dL Hematocrit 24.7 27.3 42-52 % Mean Corpuscular Volume 93.6 93.2 80-100 fL Mean Corpuscular Hemoglobin 31.1 30.7 25-34 pg Mean Corpuscular Hemoglobin Concent 33.2 33.0 32-36 g/dl Platelet Count 256 309 130-400 K/uL Mean Platelet Volume 8.8 8.8 7.4-10.4 fL Neutrophils (%) (Auto) 57.5 % Lymphocytes (%) (Auto) 32.0 % Monocytes (%) (Auto) 8.9 % Eosinophils (%) (Auto) 1.2 % Basophils (%) (Auto) 0.2 % Neutrophils # (Auto) 3.76 1.4-6.5 K/uL Lymphocytes # (Auto) 2.09 1.2-3.4 K/uL Monocytes # (Auto) 0.58 0.11-0.59 K/uL Eosinophils # (Auto) 0.08 0-0.5 K/uL Basophils # (Auto) 0.01 0-0.2 K/uL RDW Standard Deviation 47.7 47.4 36.4-46.3 fL RDW Coefficient of Variation 13.9 13.8 11.5-14.5 % Immature Granulocyte % (Auto) 0.2 % Immature Granulocyte # (Auto) 0.01 0.00-0.02 K/uL Hypersegmented Polys 1+ Sodium Level 142 136-145 mmol/L Potassium Level 3.8 3.5-5.1 mmol/L Chloride Level 109 98-107 mmol/L Carbon Dioxide Level 28 21-32 mmol/L Anion Gap 5.0 3-11 mmol/L Blood Urea Nitrogen 9 7-18 mg/dl Creatinine 0.98 0.60-1.40 mg/dl Est Creatinine Clear Calc Drug Dose 107.3 ml/min Estimated GFR () 103.0 Estimated GFR (Non- 88.9 BUN/Creatinine Ratio 9.6 07-09 Random Glucose 87 70-99 mg/dl Calcium Level 8.3 8.5-10.1 mg/dl Magnesium Level 2.0 1.8-2.4 mg/dl Total Bilirubin 0.3 0.2-1 mg/dl Aspartate Amino Transf (AST/SGOT) 17 15-37 U/L Alanine Aminotransferase (ALT/SGPT) 15 12-78 U/L Alkaline Phosphatase 50 45-117 U/L Total Protein 5.7 6.4-8.2 gm/dl Albumin 2.9 3.4-5.0 gm/dl Globulin 2.8 2.5-4.0 gm/dl Albumin/Globulin Ratio 1.0 0.9-2 Microbiology Results 07/09/17 C.difficile Toxin B Gene (PCR) - Final, Complete No C. difficile toxin B gene detected 07/09/17 Shiga Toxin Test, Received Pending 07/09/17 Stool Culture, Received Pending
[2017-07-10] MEDS ORDERED: LAVAGE SOLUTION 4000ML PO SCH (18:00)
[2017-07-11] VITALS (17 sets, daily range): BP systolic 96–120; BP diastolic 56–80; PULSE 58–99; TEMP 36.2–37.4; O2SAT 96–100
[2017-07-11 06:14] LABS: BASO % 0.1 %; BASO ABS # 0.01 K/uL (0-0.2); EOS % 0.5 %; IG% 0.1 %; LYMPH % 30.6 %; LYMPH ABS # 2.31 K/uL (1.2-3.4); MEAN CELL VOLUME 92.7 fL (80-100); MEAN CORPUSCULAR HEMOGLOBIN 30.5 pg (25-34); MEAN CORPUSCULAR HGB CONC 32.9 g/dl (32-36); MEAN PLATELET VOLUME 8.7 fL (7.4-10.4); MONO % 7.7 %; PLATELET COUNT 289 K/uL (130-400); RED BLOOD COUNT 2.59 M/uL (4.7-6.1); WHITE BLOOD COUNT 7.54 K/uL (4.8-10.8)
[2017-07-11 06:49] LABS: COMPLETE YES; MICROCYTOSIS PRESENT
[2017-07-11 06:53] LABS: BUN/CREATININE RATIO 8.9 (10-20); CALCIUM 7.8 mg/dl (8.5-10.1); CREATININE 1.03 mg/dl (0.60-1.40); MAGNESIUM 2.1 mg/dl (1.8-2.4); POTASSIUM 3.6 mmol/L (3.5-5.1)
[2017-07-11] MEDS ORDERED: POTASSIUM CHLORIDE 20 MEQ TABCR PO STA (07:46)
[2017-07-11] MEDS: ALLOPURINOL 300 MG TAB PO SCH (08:26)
[2017-07-11] MEDS: CEROVITE ADV FORMULA TAB PO SCH (08:26)
[2017-07-11] MEDS: FERROUS SULFATE 325 MG TAB PO SCH (08:26)
[2017-07-11] MEDS: FLUCONAZOLE 100 MG TAB PO SCH (08:26)
[2017-07-11] MEDS ORDERED: FENTANYL CITRATE INJ 50 MCG/1 ML 2 ML VIAL IV STA (10:28)
--- NOTE | 2017-07-11 10:39 | GASTROENTEROLOGY PROGRESS NOTE ---
DATE: 07/11/2017 AGE: 51. SEX: Male. RACE: . 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 I had a pleasure of seeing Duarte Zimmerman today at his bedside. I was contacted by his primary care doctor yesterday, who stated that he was having recurrent lower gastrointestinal bleeding with bright red blood per rectum. The patient confirmed this and subsequently the decision was made to perform a colonoscopy today. He was given a bowel prep last night, which he tolerated. He states that he had multiple bowel movements, all with bright red blood. He does not feel lightheaded or dizzy, though his H&H decreased from yesterday's level of 9.0 and 27.3 to today's level of 7.9 and 24.0. His BUN and creatinine are within normal limits. He denies any abdominal pain, fevers, chills, nausea, vomiting, hematemesis or melena, though does admit to bright red blood per rectum. He has no further complaints. He has been n.p.o. since midnight. The patient did undergo an upper endoscopy by Dr. Jones on July 09 and he was noted to have a large hiatal hernia and questionable Sharri esophagitis, though his stomach and small bowel were normal. REVIEW OF SYSTEMS: Negative [id number] review other than pertinent positives listed in the HPI. PHYSICAL EXAMINATION: VITAL SIGNS: Include a temp of 37.2, pulse 89, respirations 18, blood pressure 120/80, and pulse ox 98% on room air. GENERAL: He is awake, cooperative, in no acute distress. HEAD: Normocephalic and atraumatic. EYES: Pupils equally round. Extraocular muscles are intact. ENT: External evaluation of ears and nose are normal. Oropharynx is clear. NECK: Soft and supple. There is no JVD or lymphadenopathy. CHEST: Clear to auscultation bilaterally. CARDIOVASCULAR SYSTEM: Regular rate and rhythm. ABDOMEN: Soft, nontender, and nondistended. Positive bowel sounds. There is no hepatosplenomegaly or stigmata of chronic liver disease. EXTREMITIES: No clubbing, cyanosis, or edema. IMPRESSION: This is a 51-year-old male with continued bright red blood per rectum of unknown etiology. PLAN: The patient underwent a colonoscopy and was found to have hematin in both the colon and ileum. No active bleeding source was identified. I discussed the case with Dr. Bull of Radiology and ordered a CT Angiogram of the Abd/ pelvis. If small bowel source of bleeding identified, he will need transfer to a center with IR capabilities. If upper or lower GI source found, he will need repeat EGD or Colonoscopy. Discussed the case with Dr. Crystal from the hospitalist team as well. Recommended transfusion to maintain H/H around 8/24 Continue supportive care Once again, thanks for allowing me to participate in the care of this patient. If you have any further questions, please do not hesitate in contacting me. JUNED
[2017-07-11] MEDS: MIDAZOLAM HCL 5 MG/ML 1 ML VIAL IV PRN ×5 (10:57→11:12)
--- NOTE | 2017-07-11 11:42 | GI REPORT ---
Procedure Date: 07/11/2017 10:40 AM Procedure: Colonoscopy Indications: Hematochezia Medicines: Fentanyl 150 micrograms IV, Midazolam 8 mg IV Complications: No immediate complications. Estimated Blood Loss: Estimated blood loss: none. Procedure: Pre-Anesthesia Assessment: - Prior to the procedure, a History and Physical was performed, and patient medications and allergies were reviewed. The patient's tolerance of previous anesthesia was also reviewed. The risks and benefits of the procedure and the sedation options and risks were discussed with the patient. All questions were answered, and informed consent was obtained. Prior Anticoagulants: The patient has taken no previous anticoagulant or antiplatelet agents. ASA Grade Assessment: II - A patient with mild systemic disease. After reviewing the risks and benefits, the patient was deemed in satisfactory condition to undergo the procedure. After I obtained informed consent, the scope was passed under direct vision. Throughout the procedure, the patient's blood pressure, pulse, and oxygen saturations were monitored continuously. The On-site loaner was introduced through the anus and advanced to 15 cm into the ileum. The colonoscopy was performed without difficulty. The patient tolerated the procedure well. The quality of the bowel preparation was fair. The terminal ileum, the appendiceal orifice and the rectum were photographed. Findings: A scattered area of mucosa in the entire examined ileum was mildly friable with contact bleeding. This was biopsied with a cold forceps for histology. The distal ileum contained hematin (altered blood/sukirm-xvekjy-pwbx material). Hematin (altered blood/wkphha-zkzvap-lrli material) was found in the entire colon. A few small-mouthed diverticula were found in the sigmoid colon. Non-bleeding internal hemorrhoids were found during retroflexion. The hemorrhoids were medium-sized. Impression: - Friability with contact bleeding in the entire examined ileum. Biopsied. - Blood in the distal ileum. - Blood in the entire examined colon. - Diverticulosis in the sigmoid colon. - Non-bleeding internal hemorrhoids. Recommendation: - [facility]. - NPO. - Do a CT angiogram today, after discussion with Radiology. - Refer to a surgeon today. Cecilio Carpenter DO 07/11/2017 11:41:22 AM This report has been signed electronically. Note Initiated On: 07/11/2017 10:40 AM I attest to the content of the Intraoperative Record and orders documented therein, exceptions below
[2017-07-11] MEDS ORDERED: OPTIRAY 320 IV PRN (12:45)
--- NOTE | 2017-07-11 12:51 | DIAGNOSTIC IMAGING REPORT ---
CT ANGIO ABD/PELVIS COMBO CT DOSE: 2695.80 mGy.cm CLINICAL HISTORY: Gastrointestinal hemorrhage TECHNIQUE: Unenhanced images were obtained through the abdomen and pelvis. The patient was scanned in a dynamic helical fashion during intravenous administration of 120 cc of Optiray 320. Arterial phase and portal phase imaging was performed. Imaging was performed. A dose lowering technique was utilized adhering to the principles of ALARA. COMPARISON STUDY: None. FINDINGS: There are by basilar atelectatic changes present. No hepatic masses are visualized. There is a calcified gallstone. No splenic masses are visualized. No pancreatic masses are visualized. No adrenal masses are visualized. There is a punctate nonobstructing left renal calculus. No solid renal masses are visualized. There is no hydronephrosis. There is no evidence of abdominal aortic dilatation. There is no ascites. There is no free air. There is no evidence of pathologic adenopathy. There is no evidence of abdominal aortic aneurysm. The inferior mesenteric artery is patent. There is no renal artery stenosis. There is no superior mesenteric artery stenosis. There is no celiac artery stenosis. There are no transition zones indicate bowel obstruction. There is a small amount of opaque material within the bowel, likely secondary to ingested pill fragments. There is no acute diverticulitis. The appendix appears normal. There are no areas of contrast extravasation. Prostate is enlarged. No destructive skeletal lesions are visualized. IMPRESSION: 1. Punctate nonobstructing left renal calculus 2. Cholelithiasis 3. No acute inflammatory changes. No evidence of bowel obstruction. No evidence of free air 4. No evidence of arterial stenosis 5. The site of GI bleeding was not identified on this examination Electronically signed by: Checo Bull M.D. 07/11/2017 12:49 PM Dictated Date/Time: 07/11/2017 12:41 PM
--- NOTE | 2017-07-11 15:24 | Surgery Consultation ---
Consultation Date of Consultation: Jul 11, 2017. Attending Physician: [place] Crystal M.D. History of Present Illness 51 y/o otherwise healthy male passed out at work. he had been having some significant rectal bleeding the day before. no prior history of the same. w/u so far has failed to show the etiology. colonoscopy today found blood throughout colon and ct angiogram was neg for source. pt without pain or other symptoms. Past Medical/Surgical History Medical Problems: (1) GI bleed Status: Acute (2) Syncope Status: Acute Family History Diabetes mellitus FATHER FH: heart disease FATHER Social History Smoking Status: Never Smoker Alcohol Use: occasionally Marital Status: Housing Status: lives with family Occupation Status: employed Allergies Coded Allergies: No Known Allergies (Unverified , 08/06/08) Home Medications Scheduled Allopurinol (Zyloprim), 300 MG PO DAILY Ferrous Sulfate (Ferrous Sulfate), 325 MG PO DAILY Multiple Vitamins W/ Minerals (Mens 50+ Multi Vitamin &), 1 TAB PO DAILY Psyllium (Metamucil Fiber), 1 PKT PO DAILY Current Inpatient Medications Current Inpatient Medications Medications (Trade) Dose Ordered Sig/Nolan Route Start Time Stop Time Status Last Admin Dose Admin Sodium Chloride 1,000 ml @ 125 mls/hr Q8H IV 07/08/17 18:30 08/07/17 18:29 Future Hold 07/09/17 03:01 125 MLS/HR Acetaminophen (Tylenol Tab) 650 mg Q4H PRN PO 07/08/17 17:15 08/07/17 17:14 Ondansetron HCl (Zofran Inj) 4 mg Q6H PRN IV 07/08/17 17:15 08/07/17 17:14 07/10/17 23:37 4 MG Allopurinol (Zyloprim Tab) 300 mg DAILY PO 07/09/17 09:00 08/08/17 08:59 07/11/17 08:26 300 MG Ferrous Sulfate (Feosol Tab) 325 mg DAILY PO 07/09/17 09:00 08/08/17 08:59 07/11/17 08:26 325 MG Multivitamins/ Minerals (Multivitamin W/ Minerals Tab) 1 tab DAILY PO 07/09/17 09:00 08/08/17 08:59 07/11/17 08:26 1 TAB Fluconazole (Diflucan Tab) 200 mg QAM PO 07/09/17 14:00 07/22/17 09:01 07/11/17 08:26 200 MG Ioversol (Optiray 320) 100 ml UD PRN IV 07/11/17 12:45 07/15/17 12:44 Review of Systems Constitutional: + weakness, + problem reported (syncope) Abdomen: + GI bleeding Physical Exam Date Time Temp Pulse Resp B/P (MAP) Pulse Ox O2 Delivery O2 Flow Rate FiO2 07/11/17 15:03 36.7 77 16 115/76 99 07/11/17 14:30 37.0 72 18 114/73 100 07/11/17 14:00 68 18 111/73 96 07/11/17 13:48 37.0 73 18 108/71 97 07/11/17 13:30 37.1 73 74 117/75 99 07/11/17 13:15 36.4 75 16 113/75 97 07/11/17 13:04 37.2 78 18 110/71 98 07/11/17 12:00 Room Air 07/11/17 12:00 36.2 72 18 111/75 (87) 97 Room Air 07/11/17 11:54 79 18 125/89 (101) 97 Nasal Cannula 07/11/17 11:39 81 18 150/91 (110) 98 Nasal Cannula 07/11/17 11:24 84 18 139/95 (110) 98 Nasal Cannula 07/11/17 11:22 70 16 131/102 98 Room Air 07/11/17 11:20 71 16 138/102 98 Nasal Cannula 3 07/11/17 11:15 78 16 150/95 98 Nasal Cannula 3 07/11/17 11:10 72 16 145/100 98 Nasal Cannula 3 07/11/17 11:05 76 16 147/101 98 Nasal Cannula 3 07/11/17 11:00 65 16 159/96 96 Nasal Cannula 3 07/11/17 10:57 72 16 132/98 07/11/17 10:46 36.8 75 18 125/75 (92) 97 Room Air 07/11/17 09:42 37.2 89 18 120/80 98 Room Air 75 07/11/17 08:00 Room Air 07/11/17 07:55 37.2 75 18 105/66 (79) 98 Room Air 89 118/78 (91) 88 120/80 (93) 07/11/17 04:00 36.8 75 110/60 (77) 100 Room Air 81 115/73 (87) 99 109/64 (79) 07/11/17 04:00 100 Room Air 07/11/17 00:00 98 119/72 (88) 98 Room Air 07/11/17 00:00 98 Room Air 07/10/17 20:00 99 Room Air 07/10/17 18:55 36.6 77 18 107/71 (83) 99 Room Air 07/10/17 16:29 36.8 78 18 100/68 (79) 100 Room Air 07/10/17 16:00 Room Air General Appearance: no apparent distress Head: normocephalic, atraumatic Eyes: EOMI, sclerae normal ENT: hearing grossly normal Neck: supple, no JVD Respiratory/Chest: no respiratory distress, no accessory muscle use Abdomen/GI: non tender, soft Extremities/Musculoskelatal: no pedal edema, non-tender Neurologic/Psych: alert, oriented x 3 Skin: normal color, warm/dry Laboratory Results Last 24 Hours Test 07/10/17 16:30 07/10/17 20:11 07/10/17 23:44 07/11/17 05:27 Bedside Glucose 84 mg/dl 89 mg/dl 102 mg/dl White Blood Count 7.54 K/uL Red Blood Count 2.59 M/uL Hemoglobin 7.9 g/dL Hematocrit 24.0 % Mean Corpuscular Volume 92.7 fL Mean Corpuscular Hemoglobin 30.5 pg Mean Corpuscular Hemoglobin Concent 32.9 g/dl Platelet Count 289 K/uL Mean Platelet Volume 8.7 fL Neutrophils (%) (Auto) 61.0 % Lymphocytes (%) (Auto) 30.6 % Monocytes (%) (Auto) 7.7 % Eosinophils (%) (Auto) 0.5 % Basophils (%) (Auto) 0.1 % Neutrophils # (Auto) 4.59 K/uL Lymphocytes # (Auto) 2.31 K/uL Monocytes # (Auto) 0.58 K/uL Eosinophils # (Auto) 0.04 K/uL Basophils # (Auto) 0.01 K/uL RDW Standard Deviation 46.5 fL RDW Coefficient of Variation 13.7 % Immature Granulocyte % (Auto) 0.1 % Immature Granulocyte # (Auto) 0.01 K/uL Microcytosis PRESENT Sodium Level 145 mmol/L Potassium Level 3.6 mmol/L Chloride Level 108 mmol/L Carbon Dioxide Level 29 mmol/L Anion Gap 8.0 mmol/L Blood Urea Nitrogen 9 mg/dl Creatinine 1.03 mg/dl Est Creatinine Clear Calc Drug Dose 102.1 ml/min Estimated GFR () 97.0 Estimated GFR (Non- 83.7 BUN/Creatinine Ratio 8.9 Random Glucose 91 mg/dl Calcium Level 7.8 mg/dl Magnesium Level 2.1 mg/dl Total Bilirubin 0.2 mg/dl Aspartate Amino Transf (AST/SGOT) 15 U/L Alanine Aminotransferase (ALT/SGPT) 18 U/L Alkaline Phosphatase 51 U/L Total Protein 5.7 gm/dl Albumin 2.8 gm/dl Globulin 2.9 gm/dl Albumin/Globulin Ratio 1.0 Test 07/11/17 07:12 Bedside Glucose 100 mg/dl Assessment & Plan GI bleed. ? etiology pt stable hopefully it will stop and we can consider an out-pt pill endoscopy study. no urgent need at this time for OR will continue to follow along.
[2017-07-11 18:18] LABS: HEMATOCRIT 27.3 % (42-52); MEAN CELL VOLUME 92.9 fL (80-100); MEAN CORPUSCULAR HEMOGLOBIN 30.6 pg (25-34); MEAN PLATELET VOLUME 8.7 fL (7.4-10.4); PLATELET COUNT 291 K/uL (130-400); RED BLOOD COUNT 2.94 M/uL (4.7-6.1); WHITE BLOOD COUNT 8.51 K/uL (4.8-10.8)
--- NOTE | 2017-07-11 18:33 | Progress Note ---
Internal Med Progress Note Date of Service: Jul 11, 2017. Provider Documentation: SUBJECTIVE: patient s/p colonscopy and CTA angio. denies abdominal pain, chest pain, or shortness of breath. is receiving 1 unit PRBC because of blood found during colonoscopy OBJECTIVE: General Appearance: WD/WN, no apparent distress Head: normocephalic, atraumatic Eyes: normal inspection of sclera and conjunctiva, EOMI ENT: hearing grossly normal, dry mucous membranes Neck: supple, no JVD, no adenopathy Respiratory/Chest: lungs clear to auscultation. No wheezes, rales or rhonchi. No respiratory distress or accessory muscle use Cardiovascular: regular rate, rhythm, no murmur, normal peripheral pulses Abdomen/GI: normal bowel sounds, soft, non-tender to palpation Extremities/Musculoskelatal: normal inspection, no calf tenderness, normal capillary refill, no pedal edema Neurologic/Psych: alert, normal mood/affect, oriented x 3 Skin: normal color, warm/dry ASSESSMENT & PLAN: This is a 51yo M with PMH of diverticulosis, gout who is admitted after syncopal episode at work in the context of painless GI bleed per rectum -Patient s/p EGD on 07/09/17 without evidence of ulcers -Colonoscopy on 07/11/17: hematin in both the colon and ileum. No active bleeding source was identified. -CTA on 07/11/17 could not localize source of GI bleed -surgery consult notified on 07/11/17 -patient likely will need to be scoped again on 07/12/17 by GI. will order GI prep. NPO after midnight -1 unit or PRBC transfused to raise Hgb from 7.9 prior to the colonoscopy on and raised the Hgb to 9, maintain active type and screen Syncope: - Likely due to orthostasis due to hypovolemia or anemia form blood loss secondary to GI bleed -CT head on admission negative -troponins negative x 3 -no arrhythmia seen on telemetry Gout: - Continue allopurinol DVT ppx: SCDs due to GI bleed Vital Signs: Date Time Temp Pulse Resp B/P (MAP) Pulse Ox O2 Delivery O2 Flow Rate FiO2 07/11/17 16:33 Room Air 07/11/17 15:30 37.4 83 22 117/75 100 07/11/17 15:22 37.4 83 22 117/75 (89) 100 Room Air 07/11/17 15:03 36.7 77 16 115/76 99 07/11/17 14:30 37.0 72 18 114/73 100 07/11/17 14:00 68 18 111/73 96 07/11/17 13:48 37.0 73 18 108/71 97 07/11/17 13:30 37.1 73 74 117/75 99 07/11/17 13:15 36.4 75 16 113/75 97 07/11/17 13:04 37.2 78 18 110/71 98 07/11/17 12:00 Room Air 07/11/17 12:00 36.2 72 18 111/75 (87) 97 Room Air 07/11/17 11:54 79 18 125/89 (101) 97 Nasal Cannula 07/11/17 11:39 81 18 150/91 (110) 98 Nasal Cannula 07/11/17 11:24 84 18 139/95 (110) 98 Nasal Cannula 07/11/17 11:22 70 16 131/102 98 Room Air 07/11/17 11:20 71 16 138/102 98 Nasal Cannula 3 07/11/17 11:15 78 16 150/95 98 Nasal Cannula 3 07/11/17 11:10 72 16 145/100 98 Nasal Cannula 3 07/11/17 11:05 76 16 147/101 98 Nasal Cannula 3 07/11/17 11:00 65 16 159/96 96 Nasal Cannula 3 07/11/17 10:57 72 16 132/98 07/11/17 10:46 36.8 75 18 125/75 (92) 97 Room Air 07/11/17 09:42 37.2 89 18 120/80 98 Room Air 75 07/11/17 08:00 Room Air 07/11/17 07:55 37.2 75 18 105/66 (79) 98 Room Air 89 118/78 (91) 88 120/80 (93) 07/11/17 04:00 36.8 75 110/60 (77) 100 Room Air 81 115/73 (87) 99 109/64 (79) 07/11/17 04:00 100 Room Air 07/11/17 00:00 98 119/72 (88) 98 Room Air 07/11/17 00:00 98 Room Air 07/10/17 20:00 99 Room Air 07/10/17 18:55 36.6 77 18 107/71 (83) 99 Room Air Lab Results: Results Past 24 Hours Test 07/10/17 20:11 07/10/17 23:44 07/11/17 05:27 07/11/17 07:12 Range/Units Bedside Glucose 89 102 100 70-99 mg/dl White Blood Count 7.54 4.8-10.8 K/uL Red Blood Count 2.59 4.7-6.1 M/uL Hemoglobin 7.9 14.0-18.0 g/dL Hematocrit 24.0 42-52 % Mean Corpuscular Volume 92.7 80-100 fL Mean Corpuscular Hemoglobin 30.5 25-34 pg Mean Corpuscular Hemoglobin Concent 32.9 32-36 g/dl Platelet Count 289 130-400 K/uL Mean Platelet Volume 8.7 7.4-10.4 fL Neutrophils (%) (Auto) 61.0 % Lymphocytes (%) (Auto) 30.6 % Monocytes (%) (Auto) 7.7 % Eosinophils (%) (Auto) 0.5 % Basophils (%) (Auto) 0.1 % Neutrophils # (Auto) 4.59 1.4-6.5 K/uL Lymphocytes # (Auto) 2.31 1.2-3.4 K/uL Monocytes # (Auto) 0.58 0.11-0.59 K/uL Eosinophils # (Auto) 0.04 0-0.5 K/uL Basophils # (Auto) 0.01 0-0.2 K/uL RDW Standard Deviation 46.5 36.4-46.3 fL RDW Coefficient of Variation 13.7 11.5-14.5 % Immature Granulocyte % (Auto) 0.1 % Immature Granulocyte # (Auto) 0.01 0.00-0.02 K/uL Microcytosis PRESENT Sodium Level 145 136-145 mmol/L Potassium Level 3.6 3.5-5.1 mmol/L Chloride Level 108 98-107 mmol/L Carbon Dioxide Level 29 21-32 mmol/L Anion Gap 8.0 3-11 mmol/L Blood Urea Nitrogen 9 7-18 mg/dl Creatinine 1.03 0.60-1.40 mg/dl Est Creatinine Clear Calc Drug Dose 102.1 ml/min Estimated GFR () 97.0 Estimated GFR (Non- 83.7 BUN/Creatinine Ratio 8.9 10-20 Random Glucose 91 70-99 mg/dl Calcium Level 7.8 8.5-10.1 mg/dl Magnesium Level 2.1 1.8-2.4 mg/dl Total Bilirubin 0.2 0.2-1 mg/dl Aspartate Amino Transf (AST/SGOT) 15 15-37 U/L Alanine Aminotransferase (ALT/SGPT) 18 12-78 U/L Alkaline Phosphatase 51 45-117 U/L Total Protein 5.7 6.4-8.2 gm/dl Albumin 2.8 3.4-5.0 gm/dl Globulin 2.9 2.5-4.0 gm/dl Albumin/Globulin Ratio 1.0 0.9-2 Test 07/11/17 17:46 Range/Units White Blood Count 8.51 4.8-10.8 K/uL Red Blood Count 2.94 4.7-6.1 M/uL Hemoglobin 9.0 14.0-18.0 g/dL Hematocrit 27.3 42-52 % Mean Corpuscular Volume 92.9 80-100 fL Mean Corpuscular Hemoglobin 30.6 25-34 pg Mean Corpuscular Hemoglobin Concent 33.0 32-36 g/dl RDW Standard Deviation 48.8 36.4-46.3 fL RDW Coefficient of Variation 14.3 11.5-14.5 % Platelet Count 291 130-400 K/uL Mean Platelet Volume 8.7 7.4-10.4 fL
[2017-07-11] MEDS ORDERED: LAVAGE SOLUTION 4000ML PO SCH (19:30)
[2017-07-12] VITALS (11 sets, daily range): BP systolic 11–128; BP diastolic 66–81; PULSE 70–83; TEMP 36.5–36.9; O2SAT 97–100
[2017-07-12 06:11] LABS: BASO % 0.3 %; BASO ABS # 0.02 K/uL (0-0.2); HEMATOCRIT 25.6 % (42-52); IG% 0.2 %; LYMPH % 29.3 %; LYMPH ABS # 1.93 K/uL (1.2-3.4); MEAN CELL VOLUME 92.1 fL (80-100); MEAN CORPUSCULAR HEMOGLOBIN 30.9 pg (25-34); MEAN CORPUSCULAR HGB CONC 33.6 g/dl (32-36); MEAN PLATELET VOLUME 8.6 fL (7.4-10.4); MONO % 9.1 %; NEUT % 59.1 %; PLATELET COUNT 297 K/uL (130-400); RED BLOOD COUNT 2.78 M/uL (4.7-6.1); WHITE BLOOD COUNT 6.59 K/uL (4.8-10.8)
[2017-07-12 06:38] LABS: BUN/CREATININE RATIO 4.9 (10-20); CALCIUM 8.3 mg/dl (8.5-10.1); CREATININE 0.98 mg/dl (0.60-1.40); POTASSIUM 3.8 mmol/L (3.5-5.1)
[2017-07-12 06:51] LABS: COMPLETE YES; HYPERSEGMENTED POLYS 1+; TOXIC GRANULATION 1+
[2017-07-12] MEDS: FLUCONAZOLE 100 MG TAB PO SCH (09:18)
[2017-07-12] MEDS: ALLOPURINOL 300 MG TAB PO SCH (09:18)
[2017-07-12] MEDS: CEROVITE ADV FORMULA TAB PO SCH (09:19)
[2017-07-12] MEDS: FERROUS SULFATE 325 MG TAB PO SCH (09:19)
--- NOTE | 2017-07-12 10:02 | Surgery Progress Note ---
Surgery Progress Note Date of Service Jul 12, 2017. Subjective + feeling well, + ambulating, + pain controlled, No nausea, No vomiting Patient doing good today- sitting up in bed. Objective Vital Signs: Date Time Temp Pulse Resp B/P (MAP) Pulse Ox O2 Delivery O2 Flow Rate FiO2 07/12/17 08:59 Room Air 07/12/17 08:00 Room Air 07/12/17 07:45 36.7 70 18 114/70 (85) 98 Room Air 07/12/17 07:22 36.8 71 18 112/73 (86) 99 Room Air 07/12/17 04:21 36.6 71 19 125/80 (95) 97 07/12/17 04:00 Room Air 07/12/17 00:10 36.5 83 18 102/66 (78) 99 Room Air 07/12/17 00:00 99 Room Air 07/11/17 20:09 36.6 74 18 102/63 (76) 100 Room Air 07/11/17 20:00 100 Room Air 07/11/17 16:33 Room Air 07/11/17 15:30 37.4 83 22 117/75 100 07/11/17 15:22 37.4 83 22 117/75 (89) 100 Room Air 07/11/17 15:03 36.7 77 16 115/76 99 07/11/17 14:30 37.0 72 18 114/73 100 07/11/17 14:00 68 18 111/73 96 07/11/17 13:48 37.0 73 18 108/71 97 07/11/17 13:30 37.1 73 74 117/75 99 07/11/17 13:15 36.4 75 16 113/75 97 07/11/17 13:04 37.2 78 18 110/71 98 07/11/17 12:00 Room Air 07/11/17 12:00 36.2 72 18 111/75 (87) 97 Room Air 07/11/17 11:54 79 18 125/89 (101) 97 Nasal Cannula 07/11/17 11:39 81 18 150/91 (110) 98 Nasal Cannula 07/11/17 11:24 84 18 139/95 (110) 98 Nasal Cannula 07/11/17 11:22 70 16 131/102 98 Room Air 07/11/17 11:20 71 16 138/102 98 Nasal Cannula 3 07/11/17 11:15 78 16 150/95 98 Nasal Cannula 3 07/11/17 11:10 72 16 145/100 98 Nasal Cannula 3 07/11/17 11:05 76 16 147/101 98 Nasal Cannula 3 07/11/17 11:00 65 16 159/96 96 Nasal Cannula 3 07/11/17 10:57 72 16 132/98 07/11/17 10:46 36.8 75 18 125/75 (92) 97 Room Air General Appearance: WD/WN, no apparent distress Laboratory Results: Results Past 24 Hours Test 07/11/17 17:46 07/12/17 05:21 Range/Units White Blood Count 8.51 6.59 4.8-10.8 K/uL Red Blood Count 2.94 2.78 4.7-6.1 M/uL Hemoglobin 9.0 8.6 14.0-18.0 g/dL Hematocrit 27.3 25.6 42-52 % Mean Corpuscular Volume 92.9 92.1 80-100 fL Mean Corpuscular Hemoglobin 30.6 30.9 25-34 pg Mean Corpuscular Hemoglobin Concent 33.0 33.6 32-36 g/dl RDW Standard Deviation 48.8 49.2 36.4-46.3 fL RDW Coefficient of Variation 14.3 14.4 11.5-14.5 % Platelet Count 291 297 130-400 K/uL Mean Platelet Volume 8.7 8.6 7.4-10.4 fL Neutrophils (%) (Auto) 59.1 % Lymphocytes (%) (Auto) 29.3 % Monocytes (%) (Auto) 9.1 % Eosinophils (%) (Auto) 2.0 % Basophils (%) (Auto) 0.3 % Neutrophils # (Auto) 3.90 1.4-6.5 K/uL Lymphocytes # (Auto) 1.93 1.2-3.4 K/uL Monocytes # (Auto) 0.60 0.11-0.59 K/uL Eosinophils # (Auto) 0.13 0-0.5 K/uL Basophils # (Auto) 0.02 0-0.2 K/uL Immature Granulocyte % (Auto) 0.2 % Immature Granulocyte # (Auto) 0.01 0.00-0.02 K/uL Hypersegmented Polys 1+ Toxic Granulation 1+ Red Blood Cell Morphology Unremarkable Sodium Level 143 136-145 mmol/L Potassium Level 3.8 3.5-5.1 mmol/L Chloride Level 107 98-107 mmol/L Carbon Dioxide Level 31 21-32 mmol/L Anion Gap 5.0 3-11 mmol/L Blood Urea Nitrogen 5 7-18 mg/dl Creatinine 0.98 0.60-1.40 mg/dl Est Creatinine Clear Calc Drug Dose 107.3 ml/min Estimated GFR () 103.0 Estimated GFR (Non- 88.9 BUN/Creatinine Ratio 4.9 10-20 Random Glucose 88 70-99 mg/dl Calcium Level 8.3 8.5-10.1 mg/dl Total Bilirubin 0.3 0.2-1 mg/dl Aspartate Amino Transf (AST/SGOT) 16 15-37 U/L Alanine Aminotransferase (ALT/SGPT) 15 12-78 U/L Alkaline Phosphatase 54 45-117 U/L Total Protein 5.7 6.4-8.2 gm/dl Albumin 2.8 3.4-5.0 gm/dl Globulin 2.9 2.5-4.0 gm/dl Albumin/Globulin Ratio 1.0 0.9-2 Assessment & Plan 51-year-old male - rectal bleeding etiology ? Seen with Dr. Doherty. Patient reports bloody BM this AM. Patient reports that he completed a second colonoscopy prep- plan for both colonoscopy and upper endoscopy today. Will await results- will continue to follow. as above. clinically stable. also to get a tagged RBC scan today as well. nothing surgical to go after at this point. will continue to follow along.
[2017-07-12] MEDS ORDERED: LIDOCAINE HCL 2% 2 ML VIAL (20MG/ML) ONE (11:08)
[2017-07-12] MEDS ORDERED: MIDAZOLAM HCL 1 MG/ML 2ML VIAL ONE (11:08)
[2017-07-12] MEDS ORDERED: PROPOFOL IV EMULSION 10 MG/ML 20 ML VIAL IV ONE (11:08)
--- NOTE | 2017-07-12 11:23 | Endo History and Physical ---
History & Physical Date of Service: Jul 12, 2017. Chief Complaint: Hematochezia Referring Physician: History of Present Illness Patient was mitigated late last week with hematochezia. Upper endoscopy and colonoscopy without a specific etiology. Due to persistent hematochezia and repeated need for transfusion upper endoscopy and colonoscopy was requested again today to ensure that no lesions were missed. Past Surgical History Hx Cardiac Surgery: No Hx Abdominal Surgery: Yes (November 1994 umbilical hernia repair) Hx Post-Op Nausea and Vomiting: No Hx Cancer Surgery: No Hx Thoracic Surgery: No Hx Orthopedic: No Hx Urinary Tract Surgery: No Social History Smoking Status: Never Smoker Hx Substance Use: No Hx Alcohol Use: Yes (wine/beer 0-2 a month) Allergies Coded Allergies: No Known Allergies (Unverified , 08/06/08) Current Medications Reported Home Medications Medications Dose Route/Sig Max Daily Dose Days Date Category Metamucil Fiber (Psyllium) 51.7 % [place] 1 Pkt PO DAILY 07/08/17 Reported Ferrous Sulfate 325 Mg Tab 325 Mg PO DAILY 07/08/17 Reported Mens 50+ Multi Vitamin & (Multiple Vitamins W/ Minerals) 1 Tab Tab 1 Tab PO DAILY 07/08/17 Reported Zyloprim (Allopurinol) 300 Mg Tab 300 Mg PO DAILY 07/08/17 Reported Vital Signs Weight (Kilograms): 96.300 Height (Feet): 6 Height (Inches): 0.00 Date Time Temp Pulse Resp B/P (MAP) Pulse Ox O2 Delivery O2 Flow Rate FiO2 07/12/17 11:13 36.6 72 18 119/77 (91) 100 Room Air 07/12/17 11:08 36.8 76 18 126/81 (96) 100 Room Air 07/12/17 08:59 Room Air 07/12/17 08:00 Room Air 07/12/17 07:45 36.7 70 18 114/70 (85) 98 Room Air 07/12/17 07:22 36.8 71 18 112/73 (86) 99 Room Air 07/12/17 04:21 36.6 71 19 125/80 (95) 97 07/12/17 04:00 Room Air 07/12/17 00:10 36.5 83 18 102/66 (78) 99 Room Air 07/12/17 00:00 99 Room Air 07/11/17 20:09 36.6 74 18 102/63 (76) 100 Room Air 07/11/17 20:00 100 Room Air 07/11/17 16:33 Room Air 07/11/17 15:30 37.4 83 22 117/75 100 07/11/17 15:22 37.4 83 22 117/75 (89) 100 Room Air 07/11/17 15:03 36.7 77 16 115/76 99 07/11/17 14:30 37.0 72 18 114/73 100 07/11/17 14:00 68 18 111/73 96 07/11/17 13:48 37.0 73 18 108/71 97 07/11/17 13:30 37.1 73 74 117/75 99 07/11/17 13:15 36.4 75 16 113/75 97 07/11/17 13:04 37.2 78 18 110/71 98 07/11/17 12:00 Room Air 07/11/17 12:00 36.2 72 18 111/75 (87) 97 Room Air 07/11/17 11:54 79 18 125/89 (101) 97 Nasal Cannula 07/11/17 11:39 81 18 150/91 (110) 98 Nasal Cannula 07/11/17 11:24 84 18 139/95 (110) 98 Nasal Cannula 07/11/17 11:22 70 16 131/102 98 Room Air Physical Exam General Appearance: no apparent distress Respiratory/Chest: Auscultation: breath sounds normal Cardiovascular: Heart Auscultation: RRR Assessment and Plan Patient didn't undergo repeat upper endoscopy with push enteroscopy this afternoon. We are also planning to do a colonoscopy to look for obvious sources of gastrointestinal bleeding. If these studies are both again negative I would then suggest a gastrointestinal bleeding scan and possibly referral to tertiary center for a balloon assisted enteroscopy
--- NOTE | 2017-07-12 12:02 | Progress Note ---
Progress Note Date of Service Jul 12, 2017. Progress Note The patient underwent upper endoscopy and colonoscopy today. Findings Normal-appearing upper digestive tract to 20-30 cm beyond the duodenum Colonoscopy notable for a normal small intestine, diverticulosis of the left colon, internal hemorrhoids Recommendations Advance diet as tolerated If rebleeding occurs would suggest a GI bleeding scan
--- NOTE | 2017-07-12 13:05 | Anesthesiology Progress Note ---
Anesthesia Post Op Note Date & Time Jul 12, 2017 at 13:05 Vital Signs Pain Intensity: 0 Vital Signs Past 12 Hours Date Time Temp Pulse Resp B/P (MAP) Pulse Ox O2 Delivery O2 Flow Rate FiO2 07/12/17 12:35 62 20 112/79 (90) 98 Room Air 07/12/17 12:22 71 18 121/84 (96) 97 Room Air 07/12/17 12:12 79 18 111/77 (88) 98 Room Air 07/12/17 12:07 77 16 113/77 (89) 98 Room Air 07/12/17 11:13 36.6 72 18 119/77 (91) 100 Room Air 07/12/17 11:08 36.8 76 18 126/81 (96) 100 Room Air 07/12/17 08:59 Room Air 07/12/17 08:00 Room Air 07/12/17 07:45 36.7 70 18 114/70 (85) 98 Room Air 07/12/17 07:22 36.8 71 18 112/73 (86) 99 Room Air 07/12/17 04:21 36.6 71 19 125/80 (95) 97 07/12/17 04:00 Room Air Notes Mental Status: alert / awake / arousable, participated in evaluation Pt Amnestic to Procedure: Yes Nausea / Vomiting: adequately controlled Pain: adequately controlled Airway Patency, RR, SpO2: stable & adequate BP & HR: stable & adequate Hydration State: stable & adequate Anesthetic Complications: no major complications apparent
--- NOTE | 2017-07-12 17:07 | Progress Note ---
Internal Med Progress Note Date of Service: Jul 12, 2017. Provider Documentation: SUBJECTIVE: today, patient s/p colonoscopy and endoscopy. patient denies abdominal pain, chest pain, or shortness of breath. he will try to eat food as tolerated and observe for blood in stools. OBJECTIVE: General Appearance: no apparent distress Head: normocephalic, atraumatic Eyes: normal inspection of sclera and conjunctiva, EOMI ENT: hearing grossly normal, dry mucous membranes Neck: supple, no JVD, no adenopathy Respiratory/Chest: lungs clear to auscultation. No wheezes, rales or rhonchi. No respiratory distress or accessory muscle use Cardiovascular: regular rate, rhythm, no murmur, normal peripheral pulses Abdomen/GI: normal bowel sounds, soft, non-tender to palpation Extremities/Musculoskelatal: normal inspection, no calf tenderness, normal capillary refill, no pedal edema Neurologic/Psych: alert, normal mood/affect, oriented x 3 Skin: normal color, warm/dry ASSESSMENT & PLAN: This is a 51yo M with PMH of diverticulosis, gout who is admitted after syncopal episode at work in the context of painless GI bleed per rectum; initial impression was that patient had acute blood loss anemia due to suspected diverticular bleed but so far, the source of bleed cannot be localized -Patient s/p EGD on 07/09/17 without evidence of ulcers; Patchy candidiasis was found in the upper third of the esophagus and patient started on Diflucan by gastroenterology for Sharri esophagitis on 07/09/17 -1 unit or PRBC transfused to raise Hgb from 7.9 prior to the colonoscopy on and raised the Hgb to 9; Colonoscopy on 07/11/17: hematin in both the colon and ileum. No active bleeding source was identified. -CTA on 07/11/17 could not localize source of GI bleed -surgery consult notified on 07/11/17 -Repeat EGD and colonoscopy on 07/12/17: Normal-appearing upper digestive tract to 20-30 cm beyond the duodenum. Colonoscopy notable for a normal small intestine, diverticulosis of the left colon, internal hemorrhoids -GI recommendations 07/12/17: Advance diet as tolerated, If rebleeding occurs would suggest a GI bleeding scan Syncope: - Likely due to orthostasis due to hypovolemia or anemia form blood loss secondary to GI bleed -CT head on admission negative -troponins negative x 3 -no arrhythmia seen on telemetry Gout: - Continue allopurinol DVT ppx: SCDs due to GI bleed Full Code Status Disposition: Advance diet as tolerated, If rebleeding occurs would suggest a GI bleeding scan Vital Signs: Date Time Temp Pulse Resp B/P (MAP) Pulse Ox O2 Delivery O2 Flow Rate FiO2 07/12/17 16:00 Room Air 07/12/17 15:32 36.7 75 18 108/71 (83) 98 Room Air 07/12/17 13:17 36.7 79 20 128/81 (97) 100 Room Air 07/12/17 13:15 Room Air 07/12/17 12:35 62 20 112/79 (90) 98 Room Air 07/12/17 12:22 71 18 121/84 (96) 97 Room Air 07/12/17 12:12 79 18 111/77 (88) 98 Room Air 07/12/17 12:07 77 16 113/77 (89) 98 Room Air 07/12/17 11:13 36.6 72 18 119/77 (91) 100 Room Air 07/12/17 11:08 36.8 76 18 126/81 (96) 100 Room Air 07/12/17 08:59 Room Air 07/12/17 08:00 Room Air 07/12/17 07:45 36.7 70 18 114/70 (85) 98 Room Air 07/12/17 07:22 36.8 71 18 112/73 (86) 99 Room Air 07/12/17 04:21 36.6 71 19 125/80 (95) 97 07/12/17 04:00 Room Air 07/12/17 00:10 36.5 83 18 102/66 (78) 99 Room Air 07/12/17 00:00 99 Room Air 07/11/17 20:09 36.6 74 18 102/63 (76) 100 Room Air 07/11/17 20:00 100 Room Air Lab Results: Results Past 24 Hours Test 07/11/17 17:46 07/12/17 05:21 07/12/17 11:19 Range/Units White Blood Count 8.51 6.59 4.8-10.8 K/uL Red Blood Count 2.94 2.78 4.7-6.1 M/uL Hemoglobin 9.0 8.6 14.0-18.0 g/dL Hematocrit 27.3 25.6 42-52 % Mean Corpuscular Volume 92.9 92.1 80-100 fL Mean Corpuscular Hemoglobin 30.6 30.9 25-34 pg Mean Corpuscular Hemoglobin Concent 33.0 33.6 32-36 g/dl RDW Standard Deviation 48.8 49.2 36.4-46.3 fL RDW Coefficient of Variation 14.3 14.4 11.5-14.5 % Platelet Count 291 297 130-400 K/uL Mean Platelet Volume 8.7 8.6 7.4-10.4 fL Neutrophils (%) (Auto) 59.1 % Lymphocytes (%) (Auto) 29.3 % Monocytes (%) (Auto) 9.1 % Eosinophils (%) (Auto) 2.0 % Basophils (%) (Auto) 0.3 % Neutrophils # (Auto) 3.90 1.4-6.5 K/uL Lymphocytes # (Auto) 1.93 1.2-3.4 K/uL Monocytes # (Auto) 0.60 0.11-0.59 K/uL Eosinophils # (Auto) 0.13 0-0.5 K/uL Basophils # (Auto) 0.02 0-0.2 K/uL Immature Granulocyte % (Auto) 0.2 % Immature Granulocyte # (Auto) 0.01 0.00-0.02 K/uL Hypersegmented Polys 1+ Toxic Granulation 1+ Red Blood Cell Morphology Unremarkable Sodium Level 143 136-145 mmol/L Potassium Level 3.8 3.5-5.1 mmol/L Chloride Level 107 98-107 mmol/L Carbon Dioxide Level 31 21-32 mmol/L Anion Gap 5.0 3-11 mmol/L Blood Urea Nitrogen 5 7-18 mg/dl Creatinine 0.98 0.60-1.40 mg/dl Est Creatinine Clear Calc Drug Dose 107.3 ml/min Estimated GFR () 103.0 Estimated GFR (Non- 88.9 BUN/Creatinine Ratio 4.9 10-20 Random Glucose 88 70-99 mg/dl Calcium Level 8.3 8.5-10.1 mg/dl Total Bilirubin 0.3 0.2-1 mg/dl Aspartate Amino Transf (AST/SGOT) 16 15-37 U/L Alanine Aminotransferase (ALT/SGPT) 15 12-78 U/L Alkaline Phosphatase 54 45-117 U/L Total Protein 5.7 6.4-8.2 gm/dl Albumin 2.8 3.4-5.0 gm/dl Globulin 2.9 2.5-4.0 gm/dl Albumin/Globulin Ratio 1.0 0.9-2 Bedside Glucose 87 70-99 mg/dl
[2017-07-13] VITALS (8 sets, daily range): BP systolic 111–119; BP diastolic 63–85; PULSE 70–96; TEMP 36.8–37; O2SAT 92–100
[2017-07-13 06:00] LABS: BASO % 0.3 %; BASO ABS # 0.02 K/uL (0-0.2); EOS % 2.4 %; HEMATOCRIT 27.2 % (42-52); IG% 0.1 %; LYMPH % 32.9 %; LYMPH ABS # 2.22 K/uL (1.2-3.4); MEAN CELL VOLUME 93.2 fL (80-100); MEAN CORPUSCULAR HEMOGLOBIN 30.1 pg (25-34); MEAN CORPUSCULAR HGB CONC 32.4 g/dl (32-36); MEAN PLATELET VOLUME 8.4 fL (7.4-10.4); MONO % 11.3 %; PLATELET COUNT 322 K/uL (130-400); RED BLOOD COUNT 2.92 M/uL (4.7-6.1); WHITE BLOOD COUNT 6.74 K/uL (4.8-10.8)
[2017-07-13 06:20] LABS: COMPLETE YES
[2017-07-13 06:36] LABS: BUN/CREATININE RATIO 6.3 (10-20); CALCIUM 8.4 mg/dl (8.5-10.1); CREATININE 1.03 mg/dl (0.60-1.40); MAGNESIUM 2.2 mg/dl (1.8-2.4); POTASSIUM 4.1 mmol/L (3.5-5.1)
[2017-07-13 06:39] LABS: ALB/GLOB RATIO 0.9 (0.9-2)
[2017-07-13] MEDS: FLUCONAZOLE 100 MG TAB PO SCH (07:49)
[2017-07-13] MEDS: FERROUS SULFATE 325 MG TAB PO SCH (07:49)
[2017-07-13] MEDS: ALLOPURINOL 300 MG TAB PO SCH (07:49)
[2017-07-13] MEDS: CEROVITE ADV FORMULA TAB PO SCH (07:49)
--- NOTE | 2017-07-13 10:36 | Gastroenterology Progress Note ---
Progress Note Date of Service: Jul 13, 2017 Subjective Pt evaluation today including: conversation w/ patient, physical exam, chart review, lab review Pt seen and evaluated, chart reviewed. Had push endoscopy and colonoscopy yesterday without any source of GI blood loss. Has not had any bleeding since during colonoscopy prep. No abd pain. No CP, SOB. No lightheadedness, dizziness. No fever, chills. Wants to go home. Colon 07/12/17: internal hemorrhoids, diverticulosis otherwise normal Push EGD 07/12/17: normal including duodenum and jejunum Colon 07/11/17: blood in entire examined colon EGD 07/09/17: normal Review of Systems Constitutional: No fever, No chills Respiratory: No cough, No shortness of breath Cardiac: No chest pain, No edema Abdomen: No pain, No nausea, No vomiting, No diarrhea, No constipation, No GI bleeding Medications Current Inpatient Medications Medications (Trade) Dose Ordered Sig/Nolan Route Start Time Stop Time Status Last Admin Dose Admin Sodium Chloride 1,000 ml @ 125 mls/hr Q8H IV 07/08/17 18:30 08/07/17 18:29 Future Hold 07/09/17 03:01 125 MLS/HR Acetaminophen (Tylenol Tab) 650 mg Q4H PRN PO 07/08/17 17:15 08/07/17 17:14 Ondansetron HCl (Zofran Inj) 4 mg Q6H PRN IV 07/08/17 17:15 08/07/17 17:14 07/10/17 23:37 4 MG Allopurinol (Zyloprim Tab) 300 mg DAILY PO 07/09/17 09:00 08/08/17 08:59 07/13/17 07:49 300 MG Ferrous Sulfate (Feosol Tab) 325 mg DAILY PO 07/09/17 09:00 08/08/17 08:59 07/13/17 07:49 325 MG Multivitamins/ Minerals (Multivitamin W/ Minerals Tab) 1 tab DAILY PO 07/09/17 09:00 08/08/17 08:59 07/13/17 07:49 1 TAB Fluconazole (Diflucan Tab) 200 mg QAM PO 07/09/17 14:00 07/22/17 09:01 07/13/17 07:49 200 MG Ioversol (Optiray 320) 100 ml UD PRN IV 07/11/17 12:45 07/15/17 12:44 Objective Vital Signs Date Time Temp Pulse Resp B/P (MAP) Pulse Ox O2 Delivery O2 Flow Rate FiO2 07/13/17 08:00 Room Air 07/13/17 07:16 36.8 92 20 119/77 (91) 99 Room Air 07/13/17 04:00 97 Room Air 07/13/17 03:37 37.0 92 20 116/85 (95) 92 Room Air 07/13/17 03:36 37.0 79 20 111/76 (88) 97 Room Air 07/13/17 03:35 37.0 75 19 116/75 (89) 96 Room Air 07/12/17 23:59 97 Room Air 07/12/17 23:59 36.8 72 16 11/72 (52) 97 Room Air 07/12/17 20:00 100 Room Air 07/12/17 19:00 36.9 77 16 109/72 (84) 100 Room Air 07/12/17 16:00 Room Air 07/12/17 15:32 36.7 75 18 108/71 (83) 98 Room Air 07/12/17 13:17 36.7 79 20 128/81 (97) 100 Room Air 07/12/17 13:15 Room Air 07/12/17 12:35 62 20 112/79 (90) 98 Room Air 07/12/17 12:22 71 18 121/84 (96) 97 Room Air 07/12/17 12:12 79 18 111/77 (88) 98 Room Air 07/12/17 12:07 77 16 113/77 (89) 98 Room Air 07/12/17 11:13 36.6 72 18 119/77 (91) 100 Room Air 07/12/17 11:08 36.8 76 18 126/81 (96) 100 Room Air Physical Exam General Appearance: no apparent distress Eyes: PERRL ENT: hearing grossly normal Neck: supple Respiratory/Chest: lungs clear, normal breath sounds Cardiovascular: regular rate, rhythm Abdomen: normal bowel sounds, non tender, soft, no organomegaly, no pulsatile mass Neurologic/Psych: alert, normal mood/affect, oriented x 3 Skin: normal color, no jaundice, warm/dry Laboratory Results Last 24 Hours Test 07/12/17 11:19 07/13/17 05:15 Bedside Glucose 87 mg/dl White Blood Count 6.74 K/uL Red Blood Count 2.92 M/uL Hemoglobin 8.8 g/dL Hematocrit 27.2 % Mean Corpuscular Volume 93.2 fL Mean Corpuscular Hemoglobin 30.1 pg Mean Corpuscular Hemoglobin Concent 32.4 g/dl Platelet Count 322 K/uL Mean Platelet Volume 8.4 fL Neutrophils (%) (Auto) 53.0 % Lymphocytes (%) (Auto) 32.9 % Monocytes (%) (Auto) 11.3 % Eosinophils (%) (Auto) 2.4 % Basophils (%) (Auto) 0.3 % Neutrophils # (Auto) 3.57 K/uL Lymphocytes # (Auto) 2.22 K/uL Monocytes # (Auto) 0.76 K/uL Eosinophils # (Auto) 0.16 K/uL Basophils # (Auto) 0.02 K/uL RDW Standard Deviation 49.0 fL RDW Coefficient of Variation 14.5 % Immature Granulocyte % (Auto) 0.1 % Immature Granulocyte # (Auto) 0.01 K/uL Red Blood Cell Morphology Unremarkable Sodium Level 144 mmol/L Potassium Level 4.1 mmol/L Chloride Level 109 mmol/L Carbon Dioxide Level 28 mmol/L Anion Gap 7.0 mmol/L Blood Urea Nitrogen 6 mg/dl Creatinine 1.03 mg/dl Est Creatinine Clear Calc Drug Dose 101.7 ml/min Estimated GFR () 97.0 Estimated GFR (Non- 83.7 BUN/Creatinine Ratio 6.3 Random Glucose 90 mg/dl Calcium Level 8.4 mg/dl Magnesium Level 2.2 mg/dl Total Bilirubin 0.2 mg/dl Aspartate Amino Transf (AST/SGOT) 14 U/L Alanine Aminotransferase (ALT/SGPT) 18 U/L Alkaline Phosphatase 58 U/L Total Protein 6.0 gm/dl Albumin 2.9 gm/dl Globulin 3.1 gm/dl Albumin/Globulin Ratio 0.9 Assessment and Plan Patient is a 51 year old male with 4 days of painless rectal bleeding resulting in a syncopal episode yesterday - he has been having 1-2 bloody BMs since Wednesday , colonoscopy in January with diverticulosis and one benign polyp. He is not having any abdominal pain. no NSAIDs. no anticoagulation. No UGI symptoms. UGIB vs LGIB , will proceed with EGD for evaluation to rule out UGI source. Likely diverticular bleed, painless bleeding --> S/P EGD, push EGD and colonoscopy x 2 without source of bleeding identified. Pt has not had any bleeding x 30h with stable H&H. Bleeding likely diverticular. Diet as tolerated Return to ED with s/s of GI blood loss No GI contraindication to discharge, GI to sign off I saw and evaluated the patient. There appears to be no evidence of recurrent bleeding overnight. Patient notes that he is feeling well. I suspect that he had a diverticular hemorrhage given his diverticulosis. I would suggest a daily fiber supplement and a follow-up office as needed.
--- NOTE | 2017-07-13 14:25 | Progress Note ---
Medicine Progress Note Date & Time of Visit: Jul 13, 2017 at 14:24. Subjective Pt was seen and examined Sitting in bed comfortable with no distress Pt said that he feels fine he said that he tolerated his diet well he said that he does not have any abdominal pain denies any chest pain, palpitation, dizziness and sob Objective Last 8 Hrs Date Time Temp Pulse Resp B/P (MAP) Pulse Ox O2 Delivery O2 Flow Rate FiO2 07/13/17 12:00 Room Air 07/13/17 11:15 36.8 96 18 116/63 (80) 98 07/13/17 08:00 Room Air 07/13/17 07:16 36.8 92 20 119/77 (91) 99 Room Air Physical Exam: General-No distress Head- atraumatic Eyes- PERRL, EOMI ENT- oropharynx clear Neck- supple, no JVD Lungs- clear to auscultation Heart- regular rhythm Abdomen- normal bowel sounds, soft Extremities- no edema, no calf tenderness Neuro- alert, oriented x 3; PERRL, EOMI Skin- warm & dry Laboratory Results: Last 24 Hours Test 07/13/17 05:15 White Blood Count 6.74 K/uL Red Blood Count 2.92 M/uL Hemoglobin 8.8 g/dL Hematocrit 27.2 % Mean Corpuscular Volume 93.2 fL Mean Corpuscular Hemoglobin 30.1 pg Mean Corpuscular Hemoglobin Concent 32.4 g/dl Platelet Count 322 K/uL Mean Platelet Volume 8.4 fL Neutrophils (%) (Auto) 53.0 % Lymphocytes (%) (Auto) 32.9 % Monocytes (%) (Auto) 11.3 % Eosinophils (%) (Auto) 2.4 % Basophils (%) (Auto) 0.3 % Neutrophils # (Auto) 3.57 K/uL Lymphocytes # (Auto) 2.22 K/uL Monocytes # (Auto) 0.76 K/uL Eosinophils # (Auto) 0.16 K/uL Basophils # (Auto) 0.02 K/uL RDW Standard Deviation 49.0 fL RDW Coefficient of Variation 14.5 % Immature Granulocyte % (Auto) 0.1 % Immature Granulocyte # (Auto) 0.01 K/uL Red Blood Cell Morphology Unremarkable Sodium Level 144 mmol/L Potassium Level 4.1 mmol/L Chloride Level 109 mmol/L Carbon Dioxide Level 28 mmol/L Anion Gap 7.0 mmol/L Blood Urea Nitrogen 6 mg/dl Creatinine 1.03 mg/dl Est Creatinine Clear Calc Drug Dose 101.7 ml/min Estimated GFR () 97.0 Estimated GFR (Non- 83.7 BUN/Creatinine Ratio 6.3 Random Glucose 90 mg/dl Calcium Level 8.4 mg/dl Magnesium Level 2.2 mg/dl Total Bilirubin 0.2 mg/dl Aspartate Amino Transf (AST/SGOT) 14 U/L Alanine Aminotransferase (ALT/SGPT) 18 U/L Alkaline Phosphatase 58 U/L Total Protein 6.0 gm/dl Albumin 2.9 gm/dl Globulin 3.1 gm/dl Albumin/Globulin Ratio 0.9 Assessment & Plan This is a 51yo M with PMH of diverticulosis, gout who is admitted after syncopal episode at work in the context of painless GI bleed per rectum; initial impression was that patient had acute blood loss anemia due to suspected diverticular bleed but so far, the source of bleed cannot be localized GI Bleeding CTA abd/pelvis showed no acute inflammatory changes. No evidence of bowel obstruction. No evidence of free air S/P 1 unit PRBC during this hospital course. S/p EGD on 07/09/17 and 07/12/17 without evidence of ulcers or active bleeding. Patchy candidiasis in the upper third of the esophagus was seen on EGD On Diflucan by gastroenterology for Sharri esophagitis on 07/09/17 S/P colonoscopy on 07/11/17 and 07/12/13 showed normal small intestine, diverticulosis of the left colon, internal hemorrhoids No active source of bleeding was identified on EGD and Colonoscopy Surgery on board, no surgical intervention at this time If rebleeding occurs, GI recommended a GI bleeding scan Continue monitor h/h Advised pt to avoid NSAIDs for now Syncope: Likely due to orthostasis due to hypovolemia or anemia due to blood loss secondary to GI bleed CT head on admission negative Troponins negative x 3 Stable Sharri esophagitis Found on EGD Continue Diflucan to complete 14 days course. Gout: Continue allopurinol DVT ppx: SCDs due to GI bleed Full Code Status Disposition Follow up with your PCP Dr. Garg Check CBC btw 5 to 7 days Discharge planning: home Consultants: Gastro Surgery Current Inpatient Medications: Current Inpatient Medications Medications (Trade) Dose Ordered Sig/Nolan Route Start Time Stop Time Status Last Admin Dose Admin Sodium Chloride 1,000 ml @ 125 mls/hr Q8H IV 07/08/17 18:30 08/07/17 18:29 Future Hold 07/09/17 03:01 125 MLS/HR Acetaminophen (Tylenol Tab) 650 mg Q4H PRN PO 07/08/17 17:15 08/07/17 17:14 Ondansetron HCl (Zofran Inj) 4 mg Q6H PRN IV 07/08/17 17:15 08/07/17 17:14 07/10/17 23:37 4 MG Allopurinol (Zyloprim Tab) 300 mg DAILY PO 07/09/17 09:00 08/08/17 08:59 07/13/17 07:49 300 MG Ferrous Sulfate (Feosol Tab) 325 mg DAILY PO 07/09/17 09:00 08/08/17 08:59 07/13/17 07:49 325 MG Multivitamins/ Minerals (Multivitamin W/ Minerals Tab) 1 tab DAILY PO 07/09/17 09:00 08/08/17 08:59 07/13/17 07:49 1 TAB Fluconazole (Diflucan Tab) 200 mg QAM PO 07/09/17 14:00 07/22/17 09:01 07/13/17 07:49 200 MG Ioversol (Optiray 320) 100 ml UD PRN IV 07/11/17 12:45 07/15/17 12:44
[2017-07-13] MEDS ORDERED: DFL100 PO ×2 (15:04→15:19)
--- NOTE | 2017-07-13 15:15 | Surgery Progress Note ---
Surgery Progress Note Date of Service Jul 13, 2017. Subjective + feeling well no further bleeding. no complaints. Objective Vital Signs: Date Time Temp Pulse Resp B/P (MAP) Pulse Ox O2 Delivery O2 Flow Rate FiO2 07/13/17 15:05 36.9 70 18 112/73 (86) 100 Room Air 07/13/17 12:00 Room Air 07/13/17 11:15 36.8 96 18 116/63 (80) 98 07/13/17 08:00 Room Air 07/13/17 07:16 36.8 92 20 119/77 (91) 99 Room Air 07/13/17 04:00 97 Room Air 07/13/17 03:37 37.0 92 20 116/85 (95) 92 Room Air 07/13/17 03:36 37.0 79 20 111/76 (88) 97 Room Air 07/13/17 03:35 37.0 75 19 116/75 (89) 96 Room Air 07/12/17 23:59 97 Room Air 07/12/17 23:59 36.8 72 16 11/72 (52) 97 Room Air 07/12/17 20:00 100 Room Air 07/12/17 19:00 36.9 77 16 109/72 (84) 100 Room Air 07/12/17 16:00 Room Air 07/12/17 15:32 36.7 75 18 108/71 (83) 98 Room Air General Appearance: no apparent distress Neck: supple, no JVD Respiratory/Chest: no respiratory distress, no accessory muscle use Abdomen: non tender, non distended, soft Extremities: normal range of motion, non-tender Laboratory Results: Results Past 24 Hours Test 07/13/17 05:15 Range/Units White Blood Count 6.74 4.8-10.8 K/uL Red Blood Count 2.92 4.7-6.1 M/uL Hemoglobin 8.8 14.0-18.0 g/dL Hematocrit 27.2 42-52 % Mean Corpuscular Volume 93.2 80-100 fL Mean Corpuscular Hemoglobin 30.1 25-34 pg Mean Corpuscular Hemoglobin Concent 32.4 32-36 g/dl Platelet Count 322 130-400 K/uL Mean Platelet Volume 8.4 7.4-10.4 fL Neutrophils (%) (Auto) 53.0 % Lymphocytes (%) (Auto) 32.9 % Monocytes (%) (Auto) 11.3 % Eosinophils (%) (Auto) 2.4 % Basophils (%) (Auto) 0.3 % Neutrophils # (Auto) 3.57 1.4-6.5 K/uL Lymphocytes # (Auto) 2.22 1.2-3.4 K/uL Monocytes # (Auto) 0.76 0.11-0.59 K/uL Eosinophils # (Auto) 0.16 0-0.5 K/uL Basophils # (Auto) 0.02 0-0.2 K/uL RDW Standard Deviation 49.0 36.4-46.3 fL RDW Coefficient of Variation 14.5 11.5-14.5 % Immature Granulocyte % (Auto) 0.1 % Immature Granulocyte # (Auto) 0.01 0.00-0.02 K/uL Red Blood Cell Morphology Unremarkable Sodium Level 144 136-145 mmol/L Potassium Level 4.1 3.5-5.1 mmol/L Chloride Level 109 98-107 mmol/L Carbon Dioxide Level 28 21-32 mmol/L Anion Gap 7.0 3-11 mmol/L Blood Urea Nitrogen 6 7-18 mg/dl Creatinine 1.03 0.60-1.40 mg/dl Est Creatinine Clear Calc Drug Dose 101.7 ml/min Estimated GFR () 97.0 Estimated GFR (Non- 83.7 BUN/Creatinine Ratio 6.3 10-20 Random Glucose 90 70-99 mg/dl Calcium Level 8.4 8.5-10.1 mg/dl Magnesium Level 2.2 1.8-2.4 mg/dl Total Bilirubin 0.2 0.2-1 mg/dl Aspartate Amino Transf (AST/SGOT) 14 15-37 U/L Alanine Aminotransferase (ALT/SGPT) 18 12-78 U/L Alkaline Phosphatase 58 45-117 U/L Total Protein 6.0 6.4-8.2 gm/dl Albumin 2.9 3.4-5.0 gm/dl Globulin 3.1 2.5-4.0 gm/dl Albumin/Globulin Ratio 0.9 0.9-2 Assessment & Plan 07/13/17 doing well. repeat endoscopies essentially negative would consider pill endoscopy as out-pt no indication for surgery at this time. will sign off/call if we can help. thank you. 07/12/17 51-year-old male - rectal bleeding etiology ? Seen with Dr. Doherty. Patient reports bloody BM this AM. Patient reports that he completed a second colonoscopy prep- plan for both colonoscopy and upper endoscopy today. Will await results- will continue to follow. as above. clinically stable. also to get a tagged RBC scan today as well. nothing surgical to go after at this point. will continue to follow along. 51-year-old male - rectal bleeding etiology ? Seen with Dr. Doherty. Patient reports bloody BM this AM. Patient reports that he completed a second colonoscopy prep- plan for both colonoscopy and upper endoscopy today. Will await results- will continue to follow. as above. clinically stable. also to get a tagged RBC scan today as well. nothing surgical to go after at this point. will continue to follow along.
--- NOTE | 2017-07-13 15:18 | Discharge Instructions ---
Discharge Instructions Date of Service Jul 13, 2017. Admission Reason for Admission: Gi Bleed Discharge Discharge Diagnosis / Problem: GI Bleeding, Syncope, Sharri esophagitis Discharge Goals Goal(s): Decrease discomfort, Improve function, Improve disease control Activity Recommendations Activity Limitations: resume your previous activity (as tolerated) . Instructions / Follow-Up Instructions / Follow-Up Follow up with your primary care provider Dr. Garg on 07/19 @ 1:00 pm Complete the course for the Diflucan Check CBC within 1 week Avoid NSAID for now to decrease the risk of GI bleed Seek medical help if GI bleed reoccurs. Current Hospital Diet Patient's current hospital diet: AHA Diet (Heart Healthy) Discharge Diet Recommended Diet: AHA Diet (Heart Healthy) Procedures Procedures Performed: Ileitis Colonoscopy/EGD Pending Studies Studies pending at discharge: no Medical Emergencies . Who to Call and When: Medical Emergencies: If at any time you feel your situation is an emergency, please call 911 immediately. . Non-Emergent Contact Non-Emergency issues call your: Primary Care Provider Call Non-Emergent contact if: you have a fever, you have any medication questions . . "Provider Documentation" section prepared by Carroll Hernandez. . VTE Core Measure Inpt VTE Proph given/why not?: SCD's, Contraindicated (GI bleeding)
--- NOTE | 2017-07-15 07:46 | Discharge Summary ---
Discharge Summary Date of Service Jul 15, 2017. Discharge Summary Admission Date: Jul 08, 2017 at 17:03 Discharge Date: Jul 13, 2017 Discharge Disposition: Home Principal Diagnosis: GI Bleed Secondary Diagnoses/Problems: Sharri esophagitis Syncope Gout Procedures: EGDx2 Colonoscopyx2 Consultations: Gastro Surgery Medication Reconciliation New Medications: Fluconazole (Fluconazole) 100 Mg Tab 200 MG PO QAM for 9 Days, #18 TAB Continued Medications: Allopurinol (Zyloprim) 300 Mg Tab 300 MG PO DAILY, TAB Ferrous Sulfate (Ferrous Sulfate) 325 Mg Tab 325 MG PO DAILY Multiple Vitamins W/ Minerals (Mens 50+ Multi Vitamin &) 1 Tab Tab 1 TAB PO DAILY Psyllium (Metamucil Fiber) 51.7 % [place] 1 PKT PO DAILY Admission Information HPI (per Admitting provider): 51 year old male who presents to the ED after a syncopal event. Patient reports that when he woke up this morning he reports he felt "off and not himself." While at work, he reports he was walking down the [address] and suddenly felt lightheaded, dizzy, and nauseous. He walked into his boss's office and the next thing he new he was on the floor. He did hit his head on the desk on the way down. There was no reported seizure like symptoms or postictal state noted. No loss of bowel or bladder function. Patient denies any preceding chest pain or shortness of breath. He reports that since Wednesday he has had bloody diarrhea 1- 2 times a day. He reports that he thought it was hemorrhoids bleeding. He describes the blood as bright red. Last episode was this morning. He denies any dark tarry stools. He has had no abdominal pain. He denies any vomiting. No fevers or chills. He denies any urinary symptoms. In the ED, patient was found to have positive orthostatic BPs. Hgb is 9.9 (last hgb was 14.3 in 2007). He was given IVF and IV Protonix. Physical Exam (per Admitting): General Appearance: WD/WN, no apparent distress Head: normocephalic, + pertinent finding (small abrasion noted over left eyebrow with a small amount of edema) Eyes: normal inspection, EOMI, sclerae normal ENT: hearing grossly normal, + pertinent finding (mucous membranes moist) Neck: supple, no JVD, trachea midline Respiratory/Chest: lungs clear, normal breath sounds, no respiratory distress Cardiovascular: regular rate, rhythm, no edema, normal peripheral pulses Abdomen/GI: normal bowel sounds, non tender, soft, no organomegaly Extremities/Musculoskelatal: normal inspection, no calf tenderness, normal capillary refill Neurologic/Psych: no motor/sensory deficits, alert, oriented x 3 Skin: normal color, warm/dry Hospital Course This is a 51yo M with PMH of diverticulosis, gout who is admitted after syncopal episode at work in the context of painless GI bleed per rectum; initial impression was that patient had acute blood loss anemia due to suspected diverticular bleed but so far, the source of bleed cannot be localized GI Bleeding CTA abd/pelvis showed no acute inflammatory changes. No evidence of bowel obstruction. No evidence of free air S/P 1 unit PRBC during this hospital course. S/p EGD on 07/09/17 and 07/12/17 without evidence of ulcers or active bleeding. Patchy candidiasis in the upper third of the esophagus was seen on EGD On Diflucan by gastroenterology for Sharri esophagitis on 07/09/17 S/P colonoscopy on 07/11/17 and 07/12/13 showed normal small intestine, diverticulosis of the left colon, internal hemorrhoids No active source of bleeding was identified on EGD and Colonoscopy Surgery on board, no surgical intervention at this time If rebleeding occurs, GI recommended a GI bleeding scan Continue monitor h/h Advised pt to avoid NSAIDs for now Syncope: Likely due to orthostasis due to hypovolemia or anemia due to blood loss secondary to GI bleed CT head on admission negative Troponins negative x 3 Stable Sharri esophagitis Found on EGD Continue Diflucan to complete 14 days course. Gout: Continue allopurinol DVT ppx: SCDs due to GI bleed Full Code Status Disposition Follow up with your PCP Dr. Garg Check CBC btw 5 to 7 days Total time spent on discharge = 35 minutes This includes examination of the patient, discharge planning, medication reconciliation, and communication with other providers. Discharge Instructions Discharge Instructions Date of Service Jul 13, 2017. Admission Reason for Admission: Gi Bleed Discharge Discharge Diagnosis / Problem: GI Bleeding, Syncope, Sharri esophagitis Discharge Goals Goal(s): Decrease discomfort, Improve function, Improve disease control Activity Recommendations Activity Limitations: resume your previous activity (as tolerated) . Instructions / Follow-Up Instructions / Follow-Up Follow up with your primary care provider Dr. Garg on 07/19 @ 1:00 pm Complete the course for the Diflucan Check CBC within 1 week Avoid NSAID for now to decrease the risk of GI bleed Seek medical help if GI bleed reoccurs. Current Hospital Diet Patient's current hospital diet: AHA Diet (Heart Healthy) Discharge Diet Recommended Diet: AHA Diet (Heart Healthy) Procedures Procedures Performed: Ileitis Colonoscopy/EGD Pending Studies Studies pending at discharge: no Medical Emergencies . Who to Call and When: Medical Emergencies: If at any time you feel your situation is an emergency, please call 911 immediately. . Non-Emergent Contact Non-Emergency issues call your: Primary Care Provider Call Non-Emergent contact if: you have a fever, you have any medication questions . . "Provider Documentation" section prepared by Carroll Hernandez. . VTE Core Measure Inpt VTE Proph given/why not?: SCD's, Contraindicated (GI bleeding) Additional Copies To Kevin Garg M.D.(DAYANNA)
== END 2017-07-13 17:15 | disposition home or self-care (01) | DRG 378 ==
LOC: EDBD 14:15 → C.EDA 14:16 → C.2T 17:03 → ENRESERV 17:21
PROVIDERS: ADMIT Hospitalist; ATTEND Internal Medicine
PROC: 0DJ08ZZ Inspection of Upper Intestinal Tract, Via Natural or Artificial Opening Endoscopic (ICD-10-PCS; 2017-07-09)
PROC: 0DBB8ZX Excision of Ileum, Via Natural or Artificial Opening Endoscopic, Diagnostic (ICD-10-PCS; principal; 2017-07-11 10:28)
PROC: 0DJ08ZZ Inspection of Upper Intestinal Tract, Via Natural or Artificial Opening Endoscopic (ICD-10-PCS; 2017-07-12)
PROC: 0DJD8ZZ Inspection of Lower Intestinal Tract, Via Natural or Artificial Opening Endoscopic (ICD-10-PCS; 2017-07-12)
DX: K57.91 Diverticulosis of intestine, part unspecified, without perforation or abscess with bleeding (principal); D62 Acute posthemorrhagic anemia; B37.81 Candidal esophagitis; S00.212A Abrasion of left eyelid and periocular area, initial encounter; I95.1 Orthostatic hypotension; K44.9 Diaphragmatic hernia without obstruction or gangrene; K64.8 Other hemorrhoids; M10.9 Gout, unspecified; Z79.899 Other long term (current) drug therapy; Z83.3 Family history of diabetes mellitus; W18.39XA Other fall on same level, initial encounter; Y93.01 Activity, walking, marching and hiking; Y92.29 Other specified public building as the place of occurrence of the external cause; Y99.8 Other external cause status